=== PATIENT | female | born 1960 | race Caucasian/White ===

== ENCOUNTER → 2016-12-05 | Outpatient (REF) | payer OTHER ==
[2016-12-05 16:48] LABS: ALBUMIN 4.1 GM/DL (3.2-5.2); ALBUMIN/GLOBULIN RATIO 1.41 (1.00-1.93); ALKALINE PHOSPHATASE 114 U/L (45-117); ALT/SGPT 151 U/L (12-78); ANION GAP 8 MEQ/L (8-16); AST/SGOT 82 U/L (15-37); BILIRUBIN,TOTAL 0.3 MG/DL (0.2-1.0); BLOOD UREA NITROGEN 18 MG/DL (7-18); CARBON DIOXIDE LEVEL 29 MEQ/L (21-32); CHLORIDE LEVEL 107 MEQ/L (98-107); CREATININE FOR GFR 0.85 MG/DL (0.55-1.02); GLOMERULAR FILTRATION RATE > 60.0 (>51); GLUCOSE, FASTING 96 MG/DL (70-105); POTASSIUM SERUM 3.9 MEQ/L (3.5-5.1); SODIUM LEVEL 144 MEQ/L (136-145)
== END ==
LOC: M LABDRAW1 15:26
PROVIDERS: ATTEND Ophthalmology
DX: E11.3599 Type 2 diabetes mellitus with proliferative diabetic retinopathy without macular edema, unspecified eye (principal); H35.349 Macular cyst, hole, or pseudohole, unspecified eye

== ENCOUNTER → 2016-12-15 | Outpatient (CLI) | payer BC ==
[2016-12-15 10:46] LABS: ALBUMIN 4.2 GM/DL (3.2-5.2); ALBUMIN/GLOBULIN RATIO 1.27 (1.00-1.93); ALKALINE PHOSPHATASE 109 U/L (45-117); ALT/SGPT 67 U/L (12-78); ANION GAP 7 MEQ/L (8-16); AST/SGOT 23 U/L (15-37); BILIRUBIN,TOTAL 0.3 MG/DL (0.2-1.0); BLOOD UREA NITROGEN 23 MG/DL (7-18); CALCIUM LEVEL 9.4 MG/DL (8.5-10.1); CARBON DIOXIDE LEVEL 32 MEQ/L (21-32); CHLORIDE LEVEL 102 MEQ/L (98-107); CHOLESTEROL LEVEL 202 MG/DL (<200); GLOMERULAR FILTRATION RATE > 60.0 (>51); GLUCOSE, FASTING 106 MG/DL (70-105); POTASSIUM SERUM 3.9 MEQ/L (3.5-5.1); SODIUM LEVEL 141 MEQ/L (136-145); TOTAL PROTEIN 7.5 GM/DL (6.4-8.2); TRIGLYCERIDES LEVEL 157 MG/DL (<150)
== END ==
LOC: M LAB 08:46
PROVIDERS: ATTEND Nurse Practitioner Family
DX: E11.9 Type 2 diabetes mellitus without complications (principal); E78.2 Mixed hyperlipidemia

== ENCOUNTER → 2017-07-17 | Outpatient (REF) | payer BC ==
[2017-07-17 15:16] LABS: ALBUMIN/GLOBULIN RATIO 1.29 (1.00-1.93); ALKALINE PHOSPHATASE 101 U/L (45-117); ALT/SGPT 74 U/L (12-78); ANION GAP 10 MEQ/L (8-16); AST/SGOT 29 U/L (15-37); BILIRUBIN,TOTAL 0.3 MG/DL (0.2-1.0); BLOOD UREA NITROGEN 22 MG/DL (7-18); CARBON DIOXIDE LEVEL 26 MEQ/L (21-32); CHLORIDE LEVEL 108 MEQ/L (98-107); CHOLESTEROL LEVEL 183 MG/DL (<200); CREATININE FOR GFR 0.89 MG/DL (0.55-1.02); GLOMERULAR FILTRATION RATE > 60.0 (>51); GLUCOSE, FASTING 118 MG/DL (70-105); SODIUM LEVEL 144 MEQ/L (136-145); TOTAL PROTEIN 7.1 GM/DL (6.4-8.2); TRIGLYCERIDES LEVEL 118 MG/DL (<150)
== END ==
LOC: M LABDRAW1 13:18
PROVIDERS: ATTEND Nurse Practitioner Family
DX: E11.9 Type 2 diabetes mellitus without complications (principal); E78.2 Mixed hyperlipidemia

== ENCOUNTER → 2017-11-08 | Outpatient (REF) | payer BC ==
[2017-11-08 16:17] LABS: FREE T4 1.07 NG/DL (0.76-1.46)
== END ==
LOC: M LABDRAW1 15:32
PROVIDERS: ATTEND Nurse Practitioner Family
DX: E78.2 Mixed hyperlipidemia (principal)

== ENCOUNTER → 2019-11-26 | Outpatient (CLI) | payer OTHER ==
[2019-11-26 11:52] LABS: ALBUMIN 4.2 GM/DL (3.2-5.2); ALT/SGPT 184 U/L (12-78); BILIRUBIN,TOTAL 0.5 MG/DL (0.2-1.0); BLOOD UREA NITROGEN 14 MG/DL (7-18); CALCIUM LEVEL 9.6 MG/DL (8.5-10.1); CARBON DIOXIDE LEVEL 25 MEQ/L (21-32); CHLORIDE LEVEL 101 MEQ/L (98-107); CHOLESTEROL LEVEL 200 MG/DL (<200); CHOLESTEROL RISK RATIO 3.278 (<5); CREATININE FOR GFR 0.97 MG/DL (0.55-1.30); FREE T4 1.18 NG/DL (0.76-1.46); GLOMERULAR FILTRATION RATE > 60.0 (>51); GLUCOSE, FASTING 142 MG/DL (70-100); HDL CHOLESTEROL 61 MG/DL (>40); LDL CHOLESTEROL 110 MG/DL (<100); MAGNESIUM LEVEL 2.4 MG/DL (1.8-2.4); NON-HDL-C 139 MG/DL; POTASSIUM SERUM 3.8 MEQ/L (3.5-5.1); SODIUM LEVEL 139 MEQ/L (136-145); TOTAL PROTEIN 8.5 GM/DL (6.4-8.2); TRIGLYCERIDES LEVEL 147 MG/DL (<150)
[2019-11-26 13:33] LABS: CREATININE, URINE 67.4 MG/DL; MALB URINE SIEMENS 51.1 MG/L; MAU/CREAT RATIO 75.8 MCG/MG (0.0-30.0)
[2019-11-26 14:36] LABS: HEMOGLOBIN A1c 7.1 %
== END ==
LOC: M PLALAB 07:58
PROVIDERS: ATTEND Nurse Practitioner Family
DX: E78.2 Mixed hyperlipidemia (principal); E11.9 Type 2 diabetes mellitus without complications; E55.9 Vitamin D deficiency, unspecified; K21.9 Gastro-esophageal reflux disease without esophagitis

== ENCOUNTER → 2019-11-27 | Outpatient (REF) | payer OTHER ==
[2019-11-27 17:39] LABS: MONO SCRN NEGATIVE (NEGATIVE)
[2019-11-29 18:36] LABS: HEPATITIS A ANTIBODY IGM NEGATIVE (NEGATIVE); HEPATITIS B CORE ANTIBODY IGM NEGATIVE (NEGATIVE); HEPATITIS B SURFACE ANTIGEN NEGATIVE (NEGATIVE); HEPATITIS C VIRUS ABY INDEX < 0.0 INDEX (<0.8)
== END ==
LOC: M SFHCPLAZ 15:09
PROVIDERS: ATTEND Nurse Practitioner Family
DX: R94.5 Abnormal results of liver function studies (principal)

== ENCOUNTER → 2020-09-04 | Outpatient (REF) | payer OTHER ==
[2020-09-04 18:33] LABS: ALBUMIN 4.4 GM/DL (3.2-5.2); BILIRUBIN,TOTAL 0.3 MG/DL (0.2-1.0); CALCIUM LEVEL 10.1 MG/DL (8.8-10.2); CREATININE FOR GFR 1.03 MG/DL (0.55-1.30); GLOMERULAR FILTRATION RATE 58.2 (>45); TOTAL PROTEIN 8.1 GM/DL (6.4-8.2)
[2020-09-04 18:49] LABS: HEMOGLOBIN A1c 6.7 %
[2020-09-04 18:58] LABS: MAU/CREAT RATIO 10.8 MCG/MG (0.0-30.0)
== END ==
LOC: M SFHCPLAZ 14:24
PROVIDERS: ATTEND Family Medicine
DX: E11.9 Type 2 diabetes mellitus without complications (principal); I10 Essential (primary) hypertension; R80.9 Proteinuria, unspecified

== ENCOUNTER → 2020-11-11 | Outpatient (CLI) | payer OTHER ==
--- NOTE | 2020-11-11 11:06 | REP ---
INDICATION: [facility] SCREEN MAMMO FOR MALIGNANT NEOPLASM OF BREAST. Family history of sister with breast cancer. COMPARISON: 06/14/2016 as well as other prior exams. TECHNIQUE: MLO and CC views bilateral breasts performed with tomosynthesis. FINDINGS: Moderate fibroglandular tissue is present bilaterally. There is a new spiculated mass in the outer right breast slightly inferiorly within approximate diameter maximally of 2.5 cm. Just posterior to this there appear to be tiny calcifications. No other new mass or clustered microcalcifications are seen bilaterally. There are bilateral vascular calcifications. The Volpara volumetric breast density pattern is B. IMPRESSION: BIRADS/ACR category 0 incomplete. New spiculated nodule outer lower right breast with adjacent tiny calcifications slightly more posteriorly. Recommend spot compression magnification views and ultrasound to further evaluate. This patient's Tyrer-Cuzick lifetime breast cancer risk assessment score is 14.2%. This mammogram was interpreted with the aid of an FDA-approved computer-aided detection system. The patient states she had a clinical breast exam in over 1 year ago. The patient letter being requested is M0. RECOMMENDATION: Spot compression magnification views and ultrasound outer right breast. <Electronically signed by Dax Burns > 11/11/20 [id number]
== END ==
LOC: M WHC 09:48
PROVIDERS: ATTEND Family Medicine
DX: R92.2 Inconclusive mammogram (principal)

== ENCOUNTER → 2020-11-26 | Outpatient (CLI) | payer OTHER ==
--- NOTE | 2020-11-26 11:23 | REP ---
INDICATION: R92.8 ABN RIGHT MAMMO/RIGHT BREAST NODULE. COMPARISON: 11/11/2020. TECHNIQUE: Spot compression magnification views of the right breast are performed in the upper-outer quadrant as well as focused right breast ultrasound at that location. FINDINGS: A spiculated nodule is confirmed mammographically in the lateral aspect of the right breast with associated multiple tiny microcalcifications within the nodule and at the posterior margin of the nodule. Sonographically a hypoechoic spiculated nodule is identified at the 9 o'clock position of the right breast, corresponding to the mammographic abnormality. There is internal blood flow with Doppler evaluation. Maximum diameter sonographically is 1.8 cm. IMPRESSION: BIRADS/ACR category 5, highly suspicious findings compatible with breast cancer. Spiculated nodule identified both mammographically and sonographically in the lateral right breast. There is so seated microcalcifications within the nodule and at the posterior margin of the nodule. Recommend ultrasound-guided biopsy. This mammogram was interpreted with the aid of an FDA-approved computer-aided detection system. The patient letter being requested is M4. RECOMMENDATION: Recommend ultrasound-guided biopsy of the spiculated nodule in the lateral right breast. <Electronically signed by Dax Burns > 11/26/20 1112
== END ==
LOC: M WHC 10:19
PROVIDERS: ATTEND Family Medicine
DX: N63.11 Unspecified lump in the right breast, upper outer quadrant (principal); R92.8 Other abnormal and inconclusive findings on diagnostic imaging of breast

== ENCOUNTER → 2020-12-02 | Outpatient (CLI) | payer OTHER ==
[2020-12-02 14:03] VITALS: BP 142/90
--- NOTE | 2020-12-02 14:29 | REP ---
INDICATION: N63.20 LT BREAST 9:00 PALPABLE MASS AT 3-5 CFN. COMPARISON: Mammogram 11/26/2020. TECHNIQUE: Real-time sonographic evaluation of left breast performed. FINDINGS: Reportedly there is a palpable abnormality in the left breast at about 9 o'clock 3-5 cm from the nipple. There is no cystic or solid nodule seen at that location sonographically. IMPRESSION: BIRADS/ACR category 1, negative ultrasound left breast at the site of the palpable lump 9 o'clock. RECOMMENDATION: Clinical follow-up. <Electronically signed by Dax Burns > 12/02/20 1427
--- NOTE | 2020-12-02 14:37 | REP ---
INDICATION: R92.8 ABN MAMMO RT BREAST,US GUIDED BIOPSY. COMPARISON: 11/26/2020 TECHNIQUE: Real-time sonographic evaluation of right breast performed. FINDINGS: Ultrasound guidance was provided for Dr. Strange performed ultrasound-guided biopsy of the mass in the right breast at 9 o'clock. The biopsy needle is seen within the mass. The biopsy clip appears to be within the mass. IMPRESSION: Ultrasound guidance provided for Dr. Strange for ultrasound-guided biopsy of right breast mass 9 o'clock. RECOMMENDATION: Clinical follow-up. <Electronically signed by Dax Burns > 12/02/20 [id number]
--- NOTE | 2020-12-02 14:58 | REP ---
INDICATION: R92.8 ABN MAMMO RT BREAST, POST US GUIDED BIOPSY. COMPARISON: 11/26/2020. TECHNIQUE: ML and CC views right breast performed following ultrasound-guided biopsy of a right breast mass laterally. FINDINGS: A biopsy clip is seen within the spiculated mass in the lateral right breast. IMPRESSION: Successful ultrasound-guided biopsy and clip placement for a mass in the lateral right breast. RECOMMENDATION: Clinical follow-up. <Electronically signed by Dax Burns > 12/02/20 4616
--- NOTE | 2020-12-05 22:55 | ROOPDOC ---
[facility] Report Of Operation Report of Operation DATE OF PROCEDURE: 12/02/20 DIAGNOSIS: right breast suspicious lesion PROCEDURE: Ultrasound guided biopsy of right breast suspicious lesion with clip placement SURGEON: Giuliano Jones BLOOD LOSS: minimal COMPLICATIONS: none Lidocaine 1% LOT [id number] Expiration 07/12 Sodium Bicarbonate 8.4% LOT [id number] Expiration 05/10 Hydromark clip LOT [id number] Expiration 08/12 SHAPE 4 Bx device: BARD [id number] x10 cm LOT [id number] Expiration 07/12 Informed consent was obtained. The most common risk and possible complications including bleeding, hematoma, bruising, infection, injury to surrounding structures were explained to the patient and the patient expressed understa nding. Patient was placed on the bed in the supine position. Appropriate time out was done stating patients name, date of , and the procedure to be performed. The right breast was prepped and draped in the usual fashion. The ultrasound was used to confirm the location of the lesion in the right breast at 9:00 3 centimeters from the nipple. Plain Lidocaine 1% and 8.4% sodium bicarbonate 10:1 mix was used to anesthetize the skin, the biopsy site and tissues along the anticipated biopsy tract. Small skin incision was made with blade number 11. BARD Marquee 14G cannula with introducer ([id number]) was inserted through the incision and advanced under the ultrasound guidance to position immediately adjacent to the lesion. Next, the introducer was removed and BARD Marquee 14G biopsy device was places in the cannula. Pre-biopsy imaging, and post-biopsy imaging were captured. Five good core biopsies were taken at various levels of the lesion. Specimen was placed in formaldehyde, labeled with appropriate biopsy site and patients name, and sent to pathology for evaluation. Next, the biopsy device was withdrawn and a clip introducer was inserted into the biopsy site via the cannula. The SHAPE 4 Hydromark clip was deployed under sonographic guidance. Post-clip placement image was captured. Manual pressure over the biopsy cavity and tract was held after the clip introducer was withdrawn. No bleeding was noted upon removal of the pressure. Post-biopsy mammogram of the right breast was obtained and showed clip in expected position. Postprocedural dressing was placed. Patient tolerated procedure well. Discharge instructions were discussed with the patient and the patient expressed understanding. GIULIANO JONES DO Dec 05, 2020 22:55
== END ==
LOC: M WHCPRO 11:38
PROVIDERS: ATTEND Surgery
DX: C50.911 Malignant neoplasm of unspecified site of right female breast (principal)

== ENCOUNTER → 2020-12-02 | Outpatient (CLI) | payer OTHER ==
[~2020-12-02] MED LIST: AMOX500C PO; ASPI-161 PO; ATOR1TAB19 PO; D31000TA2 PO; HYDR-3490 PO; METF500T13 PO; OMEGCAP4 PO; OMEP-218 PO; VITA50005 PO
== END ==
LOC: M PLALAB 14:09
PROVIDERS: ATTEND Surgery
DX: Z13.79 Encounter for other screening for genetic and chromosomal anomalies (principal)

== ENCOUNTER → 2020-12-10 | Outpatient (REF) | payer OTHER ==
[2020-12-10 14:13] LABS: BLOOD UREA NITROGEN 18 MG/DL (7-18); CARBON DIOXIDE LEVEL 33 MEQ/L (21-32); CHLORIDE LEVEL 102 MEQ/L (98-107); CREATININE FOR GFR 0.95 MG/DL (0.55-1.30); GLOMERULAR FILTRATION RATE > 60.0 (>45); GLUCOSE, FASTING 150 MG/DL (70-100); POTASSIUM SERUM 3.9 MEQ/L (3.5-5.1); SODIUM LEVEL 140 MEQ/L (136-145)
== END ==
LOC: M PLALAB 11:41
PROVIDERS: ATTEND Surgery
DX: C50.911 Malignant neoplasm of unspecified site of right female breast (principal)

== ENCOUNTER → 2020-12-25 | Outpatient (CLI) | payer OTHER ==
[~2020-12-25] MED LIST changes: +PROHANCE 279.3MG/ML 15ML VIAL As Ordered ONE; +PROHANCE 279.3MG/ML 5ML VIAL As Ordered ONE
--- NOTE | 2020-12-25 17:13 | REP ---
INDICATION: MAL BRITTA OF RT BREAST. COMPARISON: Comparison bilateral mammography November 11, 2020. Diagnostic right breast mammography November 26, 2020 and ultrasound from the same date confirmed mass a suspicious mass in the right lateral breast. Ultrasound-guided needle biopsy performed 02 December 2020. TECHNIQUE: Three Mayra MRI imaging was performed with a dedicated breast coil. Axial, coronal, and sagittal T1 and T2 weighted scans were obtained with and without fat saturation in the usual fashion. The study includes dynamically acquired post gadolinium-enhanced imaging with image subtraction. Maximum intensity projection and multi planar reformation imaging is included as well. This study is interpreted with the aid of [employer], an FDA approved computer aided detection (CAD) software program, on a dedicated breast MRI workstation. The gadolinium enhancement dose is 16 mL of intravenous ProHance. FINDINGS: The spiculated mass identified mammographically and sonographically and recently biopsied is seen in the right breast inferolateral quadrant at approximately the 8 o'clock position middle 3rd. There is an adjacent HydroMARK needle biopsy marker clip. This lesion is spiculated, measures 1.5 cm in diameter on MR images, and shows heterogeneous areas of enhancement with mixed plateau and washout kinetics. There is a moderate fibroglandular pattern and multifocal non mass-like diffuse and symmetric pattern of background parenchymal enhancement is seen in both breasts. No significant cystic changes seen. There are multiple normal appearing fat replaced axillary lymph nodes bilaterally. There is no MR evidence to suggest adenopathy. No internal mammary adenopathy is seen. No other suspicious morphologic abnormality is seen in either breast. No other suspicious area of enhancement and washout kinetics is seen. Subtraction views show no additional abnormality. IMPRESSION: BI-RADS category 6 known right breast malignancy. No other suspicious target is identified on breast MRI study. <Electronically signed by Massimo Villalba > 12/25/20 5044
== END ==
LOC: M RAD 14:26
PROVIDERS: ATTEND Surgery
DX: C50.911 Malignant neoplasm of unspecified site of right female breast (principal)
CPT/HCPCS: A9576; C8908

== ENCOUNTER → 2020-12-31 | Outpatient (CLI) | payer OTHER ==
[~2020-12-31] MED LIST changes: -PROHANCE 279.3MG/ML 15ML VIAL As Ordered ONE; -PROHANCE 279.3MG/ML 5ML VIAL As Ordered ONE
== END ==
LOC: M LABSMTC 11:17
PROVIDERS: ATTEND Anesthesiology
DX: Z01.812 Encounter for preprocedural laboratory examination (principal); Z20.822 Contact with and (suspected) exposure to COVID-19

== ENCOUNTER → 2021-01-01 | Outpatient (REF) | payer OTHER ==
[~2021-01-01] MED LIST changes: +ROXI1TAB2 PO
[2021-01-01 18:05] LABS: HEMOGLOBIN A1c 7.1 %
[2021-01-01 18:15] LABS: ALBUMIN 4.5 GM/DL (3.2-5.2); ALT/SGPT 81 U/L (12-78); BASO # 0.1 10^3/uL (0.0-0.2); BASO % 0.8 % (0.0-1.0); BILIRUBIN,TOTAL 0.3 MG/DL (0.2-1.0); BLOOD UREA NITROGEN 18 MG/DL (7-18); CALCIUM LEVEL 10.3 MG/DL (8.8-10.2); CARBON DIOXIDE LEVEL 33 MEQ/L (21-32); CHLORIDE LEVEL 100 MEQ/L (98-107); EOS # 0.3 10^3/uL (0.0-0.5); EOS % 3.8 % (0.0-3.0); GLOMERULAR FILTRATION RATE > 60.0 (>45); GLUCOSE, FASTING 109 MG/DL (70-100); HEMATOCRIT 43.8 % (36.0-47.0); LYMPH # 2.1 10^3/uL (1.5-5.0); LYMPH % 23.7 % (24.0-44.0); MEAN CORPUSCULAR HEMOGLOBIN 28.4 pg (27.0-33.0); MEAN CORPUSCULAR VOLUME 88.8 fl (80.0-96.0); MONO # 0.7 10^3/uL (0.0-0.8); NEUTROPHILS # 5.7 10^3/uL (1.5-8.5); NEUTROPHILS % 63.4 % (36.0-66.0); NT-PRO BNP 57 PG/ML (<125); PLATELET COUNT, AUTOMATED 295 10^3/uL (150-450); POTASSIUM SERUM 4.3 MEQ/L (3.5-5.1); RED BLOOD COUNT 4.93 10^6/uL (4.00-5.40); SODIUM LEVEL 141 MEQ/L (136-145); TOTAL PROTEIN 8.1 GM/DL (6.4-8.2)
== END ==
LOC: M SFHCPLAZ 15:39
PROVIDERS: ATTEND Family Medicine
DX: Z01.818 Encounter for other preprocedural examination (principal)

== ENCOUNTER 2021-01-05 06:42 | Day surgery (SDC) | payer OTHER ==
[~2021-01-05] VITALS: Ht 162.6 cm; Wt 81.6 kg
[~2021-01-05 06:42] MED LIST changes: +HEPARIN SOD (PORCINE) 5000UNITS/ML 1ML VIAL/SYRINGE SQ ONE; +LR 1,000 ML IV ONE; -ROXI1TAB2 PO; +ceFAZolin SOD 2 GM in IV 1 EA IV ONE
[2021-01-05] MEDS ORDERED: BUPIVACAINE HCL 0.25% 30ML VIAL As Ordered ONE (07:12)
[2021-01-05] MEDS ORDERED: METHYLENE BLUE 0.5% (5MG/ML) 10 ML AMP (PROVAYBLUE) As Ordered ONE (07:12)
[2021-01-05] MEDS ORDERED: LIDOCAINE 1% SDV 30ML VIAL As Ordered ONE (07:12)
--- OUTSIDE RECORDS SUMMARY | 2021-01-05 07:37 | CCD ---
Author Author [facility] Organization [employer] [facility] [facility] Address Unknown Phone Unavailable Care Team Providers Care Parer Name Role Phone Suzy Strange Unavailable PROBLEMS Type Condition ICD9-CM Code HFQ82-NP Code Onset Dates Condition S tatus W/U Status Risk SNOMED Code Notes Problem Family history of breast cancer in sister Z80.3 Active confirmed 573255425 Problem Postmenopausal status Z78.0 Active confirmed 35554903 Problem DM w/o complication type II E11.9 Active confirmed 976070616 Problem Essential hypertension I10 Active confirmed 42292326 Problem Vitamin D deficiency E55.9 Active confirmed 44665984 Problem Type 2 diabetes mellitus wit hout complication, unspecified whether mcfp insulin use E11.9 Active confirmed 019572075 Problem Mixed hyperlipidemia E78.2 Active confirmed 503615226 Problem Malignant neoplasm of right female breast, unspecified estrogen receptor status, unspecified site of breast C50.911 Active confirmed 177751652 Problem Esophageal reflux K21.9 Active confirmed 23 7775579 Problem Macular cyst, hole, or pseudohole, left eye H35.34 2 Active confirmed 333246743 Problem Elevated LFTs R94.5 Active confirmed 857972 001 Problem Age-related nuclear cataract, left eye H25.12 A ctive confirmed 797111218924748 Problem Abnormal mammogram of right breast R92.8 Activ e confirmed 737490518 ALLERGIES Allergen (clinical drug ingredient) Drug/Non Drug Allergy do cumented on EMR Reaction Allergy Type Onset Date Status lisinopril Lisinopril(NDC Code:[address]-40) Rash Drug Allergy Active valsartan Valsartan(NDC Code:[address]-94) rash Drug Allergy Active cold medication Rash Non Drug Allergy Act soy ENCOUNTERS from 1959 to 2020-12-30 Encounter Location Date Provider Diagnosis [facility] [place] [address] 2020 Suzy Grahamsergiojoe IMMUNIZATIONS Vaccine Route Administration Date Status Influenza (Pharmacy Given) Unknown Sep 19, 2019 Admin istered Influenza (18 yrs & older) Flublok IM Intramuscular Sep 04, 2020 Administered TDAP IM Intramuscular April 28, 2016 Administered Influenza (6mo & up) Fluzone Unknown Sep 20, 2017 Adm inistered Influenza (6mo & up) Fluzone Unknown Aug 26, 2016 Adm inistered Influenza (6mo & up) Fluzone Unknown Sep 06, 2012 Adm inistered Influenza (6mo & up) Fluzone Unknown Sep 02, 2011 Adm inistered SOCIAL HISTORY Tobacco Use: Social History Observation Description Date Details (start date - stop date) Never Smoker Sex Assigned At : Social History Observation Description Sex Assigned At Unknown Education: Question Answer Notes Level of Education: High School Audit Question Answer Notes Total Score: 0 Interpretation: Alcohol Education Language: Question Answer Notes Languages spoken: Cape Verdean Lutheran: Question Answer Notes Lutheran 05 Alevism Sexual Hx: Question Answer Notes Had sex in the last 12 months (vaginal, oral, or anal)? No Drug and Alcohol Question Answer Notes Total Score: 0 Interpretation: No problems reported Tobacco Use: Question Answer Notes Are you a: never smoker REASON FOR REFERRAL No Information VITAL SIGNS No information MEDICATIONS Medication SIG (Take, Route, Frequency, Duration) Notes Start Da te End Date Status Lancets DX: E11.9 as directed - dailyand prn for 99 months Not-Taking Omeprazole 20 mg 1 capsule Orally Once a day for 90 day(s) Active Aspir-81 81 MG 1 tablet Orally Once a day Active Atorvastatin Calcium 10 MG 1 tablet Orally Once a day for 90 days Active Drisdol 1.25 MG (22132 UT) 1 capsule Orally once a wee k, take with meal for 30 day(s) Active Glucometer - as directed - daily for 99 months Not-Taking Metformin HCl 500 MG 2 tabs with meal Orally daily for 30 day(s) Active Lidocaine-Prilocaine 2.5-2.5 % apply entire tube to ri ght nipple 2 hours prior coming to hospital for surgery. Cover with plastic Externally once for 1 day Dec, Active [place] 3 1000 MG 2 capsule Orally Once a day Active Blood Glucose Test DX: E11.9 as directed In Vitro fasting daily for 99 months Not-Taking Vitamin D 2000 UNIT 2 tabs with food Orally Once a day Not-Taking Hydrochlorothiazide 25 MG 1 tablet Orally Once a day for 90 day(s) Active PROCEDURES No Information RESULTS No Results REASON FOR VISIT surgery question MEDICAL (GENERAL) HISTORY Type Description Date Medical History palpitations Medical History thalassemia minor- Hx of anemia since ch ildhood Medical History anxiety Medical History Esophageal reflux Medical History low back pain Medical History essential Hypertension Medical History elevated liver enzymes - sono normal Medical History Dysmetabolic Syndrome X Medical History DM w/o complication type II - 08/2015 Medical History Vitamin D deficiency Surgical History tubal ligation 1980 Surgical History T & A 1966 Surgical History colonoscopy - diverticulosis, f/up 5-10y rs, Re[facility]l 05/01 Surgical History EGD -normal, Reindl 05/01 Surgical History L eye macula hole repair 12-26-16 Surgical History Rt breast biopsy 12/02/20 Hospitalization History No Hospitalization history informati on Goals Section No Information Health Concerns No Information MEDICAL EQUIPMENT No Information MENTAL STATUS No Information FUNCTIONAL STATUS No Information ASSESSMENTS No Information PLAN OF TREATMENT Medication Medication Name Sig Start Date Stop Date Lidocaine-Prilocaine 2.5-2.5 % apply entire tube to ri ght nipple 2 hours prior coming to hospital for surgery. Cover with plastic Externally once for 1 day Dec, Next Appt Details Provider Name:Gerry Pond, 2021-01-01 0 2:00:00 PM, [address] [place] [address], [phone], Provider Name:Suzy Strange, 10-01-16 10:00:00 AM, [address] [place] [address], [phone], Provider Name:Suzy Strange, 10-01-22 02:00:00 PM, [address] [place] [address], [address], Provider Name:Suzy Strange, 20 21-03-15 10:00:00 AM, [address] [place], [address], Provider Name:Melany Hinojosa, 2021-03-17 02:3 0:00 PM, [address] [place] [address], [phone], Insurance Providers Payer Name Payer Address Payer Phone Insured Name Patient Relati onship to Insured Coverage Start Date Coverage End Date [facility] COMM[employer]AN [facility] [address] [facility] [phone] JONO RINCON
--- OUTSIDE RECORDS SUMMARY | 2021-01-05 07:38 | CCD ---
Author Author [facility] Organization [facility] [facility] Address Unknown Phone Unavailable Care Team Providers Care Manager Care Management Name Role Phone Suzy Strange Unavailable PROBLEMS Type Condition ICD9-CM Code [id number] Code Onset Dates Condition S tatus W/U Status Risk SNOMED Code Notes Problem Family history of breast cancer in sister Z80.3 Active confirmed 788500170 Problem Postmenopausal status Z78.0 Active confirmed 28639348 Problem DM w/o complication type II E11.9 Active confirmed 527394408 Problem Essential hypertension I10 Active confirmed 50388057 Problem Vitamin D deficiency E55.9 Active confirmed 36652815 Problem Type 2 diabetes mellitus wit hout complication, unspecified whether mcfp insulin use E11.9 Active confirmed 297124729 Problem Mixed hyperlipidemia E78.2 Active confirmed 417739522 Problem Malignant neoplasm of right female breast, unspecified estrogen receptor status, unspecified site of breast C50.911 Active confirmed 162887781 Problem Esophageal reflux K21.9 Active confirmed 23 4827287 Problem Macular cyst, hole, or pseudohole, left eye H35.34 2 Active confirmed 651613932 Problem Elevated LFTs R94.5 Active confirmed 557775 001 Problem Age-related nuclear cataract, left eye H25.12 A ctive confirmed 031448981906134 Problem Abnormal mammogram of right breast R92.8 Activ e confirmed 426489806 ALLERGIES Allergen (clinical drug ingredient) Drug/Non Drug Allergy do cumented on EMR Reaction Allergy Type Onset Date Status lisinopril Lisinopril(NDC Code:[address]-03) Rash Drug Allergy Active valsartan Valsartan(NDC Code:[address]-11) rash Drug Allergy Active cold medication Rash Non Drug Allergy Act soy ENCOUNTERS from 1959 to 2020-12-29 Encounter Location Date Provider Diagnosis [facility] Breast Care [facility] [place] [address] Nov, Suzy Strange IMMUNIZATIONS Vaccine Route Administration Date Status Influenza [...] Education Language: Question Answer Notes Languages spoken: St Helenian Druze: Question Answer Notes Druze 05 Jew Sexual Hx: Question Answer Notes Had sex [...] for 90 days Active Drisdol 1.25 MG (40836 UT) 1 capsule Orally once a wee [...] Externally once for 1 day Dec, Active [place] 3 1000 MG 2 capsule Orally Once a day Active Blood Glucose Test DX: E11.9 as directed In Vitro fasting daily for 99 months Not-Taking Vitamin D 2000 UNIT 2 tabs with food Orally Once a day Not-Taking Hydrochlorothiazide 25 MG 1 tablet Orally Once a day for 90 day(s) Active PROCEDURES No Information RESULTS No Results REASON FOR VISIT ER/OH/ HER 2 results MEDICAL (GENERAL) HISTORY Type Description Date Medical [...] Provider Name:Gerry Pond, 2021-01-01 0 2:00:00 PM, [address] [place] [address], [phone], Provider Name:Suzy Strange, 10-01-16 10:00:00 AM, [address] [place] [address], [phone], Provider Name:Suzy Strange, 10-01-22 02:00:00 PM, [address] [place] [address], [address], Provider Name:Suzy Strange, 07-02-15 10:00:00 AM, [address] [place] [address], [phone], Provider Name:Melany Hinojosa, 2021-03-17 02:3 0:00 PM, [address] [place] [address], [phone], Insurance Providers Payer Name Payer Address Payer Phone Insured Name Patient Relati onship to Insured Coverage Start Date Coverage End Date [facility] COMM[facility] PLAN [facility] [address] [facility] [phone] JONO RINCON
--- OUTSIDE RECORDS SUMMARY | 2021-01-05 07:39 | CCD ---
Author Author [facility] Organization [employer] [employer] [facility] Address Unknown Phone Unavailable Care Team Providers Care Dental Technologist Name Role Phone Suzy Strange Unavailable PROBLEMS Type Condition ICD9-CM Code QZC76-FK Code Onset Dates Condition S tatus W/U Status Risk SNOMED Code Notes Problem Family history of breast cancer in sister Z80.3 Active confirmed 553512496 Problem Postmenopausal status Z78.0 Active confirmed 14420913 Problem DM w/o complication type II E11.9 Active confirmed 300457518 Problem Essential hypertension I10 Active confirmed 91863940 Problem Vitamin D deficiency E55.9 Active confirmed 37636887 Problem Type 2 diabetes mellitus wit hout complication, unspecified whether fdc insulin use E11.9 Active confirmed 209663289 Problem Mixed hyperlipidemia E78.2 Active confirmed 693052016 Problem Malignant neoplasm of right female breast, unspecified estrogen receptor status, unspecified site of breast C50.911 Active confirmed 943324790 Problem Esophageal reflux K21.9 Active confirmed 23 2681761 Problem Macular cyst, hole, or pseudohole, left eye H35.34 2 Active confirmed 699765048 Problem Elevated LFTs R94.5 Active confirmed 058452 001 Problem Age-related nuclear cataract, left eye H25.12 A ctive confirmed 307515083336849 Problem Abnormal mammogram of right breast R92.8 Activ e confirmed 070086484 ALLERGIES Allergen (clinical drug ingredient) Drug/Non Drug Allergy do cumented on EMR Reaction Allergy Type Onset Date Status lisinopril Lisinopril(NDC Code:[address]-88) Rash Drug Allergy Active valsartan Valsartan(NDC Code:[address]-41) rash Drug Allergy Active cold medication Rash Non Drug Allergy Act soy ENCOUNTERS from 1959 to 2020-12-29 Encounter Location Date Provider Diagnosis [address] [phone] Dec, Suzy Strange Malignant neoplasm of right female breast, unspecified estrogen receptor status, unspecified site of breast C50.911 IMMUNIZATIONS Vaccine Route Administration Date Status Influenza [...] Education Language: Question Answer Notes Languages spoken: Guinean Advent: Question Answer Notes Advent 05 Amish Sexual Hx: Question Answer Notes Had sex [...] for 90 days Active Drisdol 1.25 MG (10822 UT) 1 capsule Orally once a wee [...] Externally once for 1 day Dec, Active [place] 3 1000 MG 2 capsule Orally Once a day Active Blood Glucose Test DX: E11.9 as directed In Vitro fasting daily for 99 months Not-Taking Vitamin D 2000 UNIT 2 tabs with food Orally Once a day Not-Taking Hydrochlorothiazide 25 MG 1 tablet Orally Once a day for 90 day(s) Active PROCEDURES No Information RESULTS No Results REASON FOR VISIT MRI results MEDICAL (GENERAL) HISTORY Type Description Date [...] No Information FUNCTIONAL STATUS No Information ASSESSMENTS Encounter Date Diagnosis Assessment Notes Treatment Notes Treatm ent Clinical Notes Dec, Malignant neoplasm of right female breast, unspecified estrogen receptor status, unspecified site of breast (ICD-10 - C50.911) PLAN OF TREATMENT Medication Medication Name Sig Start Date Stop Date Lidocaine-Prilocaine 2.5-2.5 % apply entire tube to ri ght nipple 2 hours prior coming to hospital for surgery. Cover with plastic Externally once for 1 day Dec, Next Appt Details Provider Name:Gerry Pond, 2021-01-01 0 2:00:00 PM, [facility] [place], [phone], Provider Name:Suzy Strange, 20 10-01-16 10:00:00 AM, [facility] [place], [phone], Provider Name:Szuy Strange, 10-01-22 02:00:00 PM, [address] [place] [address], [address], Provider Name:Suzy Strange, 07-02-15 10:00:00 AM, [address] [place] [address], [address], Provider Name:Melany Hinojosa, 2021-03-17 02:3 0:00 PM, [address] [place] [address], [phone], Insurance Providers Payer Name Payer Address Payer Phone Insured Name Patient Relati onship to Insured Coverage Start Date Coverage End Date [facility] [employer] [facility] [address] [facility] [phone] JONO RINCON self
--- OUTSIDE RECORDS SUMMARY | 2021-01-05 07:40 | CCD ---
Author Author [employer] Organization [employer] Address Unknown Phone Unavailable Care Team Providers Care Deli Cook Name Role Phone Suzy Strange Unavailable PROBLEMS Type Condition ICD9-CM Code [id number] Code Onset Dates Condition S tatus W/U Status Risk SNOMED Code Notes Problem Family history of breast cancer in sister Z80.3 Active confirmed 336939205 Problem Postmenopausal status Z78.0 Active confirmed 96527994 Problem DM w/o complication type II E11.9 Active confirmed 147728214 Problem Essential hypertension I10 Active confirmed 41902940 Problem Vitamin D deficiency E55.9 Active confirmed 72011322 Problem Type 2 diabetes mellitus wit hout complication, unspecified whether fdc insulin use E11.9 Active confirmed 690023948 Problem Mixed hyperlipidemia E78.2 Active confirmed 427454349 Problem Malignant neoplasm of right female breast, unspecified estrogen receptor status, unspecified site of breast C50.911 Active confirmed 458907188 Problem Esophageal reflux K21.9 Active confirmed 23 4186069 Problem Macular cyst, hole, or pseudohole, left eye H35.34 2 Active confirmed 644937550 Problem Elevated LFTs R94.5 Active confirmed 813086 001 Problem Age-related nuclear cataract, left eye H25.12 A ctive confirmed 288222424543877 Problem Abnormal mammogram of right breast R92.8 Activ e confirmed 268723772 ALLERGIES Allergen (clinical drug ingredient) Drug/Non Drug Allergy do cumented on EMR Reaction Allergy Type Onset Date Status lisinopril Lisinopril(NDC Code:[address]-04) Rash Drug Allergy Active valsartan Valsartan(NDC Code:[address]-37) rash Drug Allergy Active cold medication Rash Non Drug Allergy Act soy ENCOUNTERS from 1960 to 2020-12-28 Encounter Location Date Provider Diagnosis [facility] [address] [place] [id number] 2020 Suzy Alie IMMUNIZATIONS Vaccine Route Administration Date Status Influenza [...] Education Language: Question Answer Notes Languages spoken: Divehi Yazidi: Question Answer Notes Yazidi 05 Latter Day Sexual Hx: Question Answer Notes Had sex [...] for 90 days Active Drisdol 1.25 MG (20362 UT) 1 capsule Orally once a wee [...] Externally once for 1 day Dec, Active Elgin 3 1000 MG 2 capsule Orally Once a day Active Blood Glucose Test DX: E11.9 as directed In Vitro fasting daily for 99 months Not-Taking Vitamin D 2000 UNIT 2 tabs with food Orally Once a day Not-Taking Hydrochlorothiazide 25 MG 1 tablet Orally Once a day for 90 day(s) Active PROCEDURES No Information RESULTS No Results REASON FOR VISIT AUTHORIZATION MEDICAL (GENERAL) HISTORY Type Description Date Medical [...] Provider Name:Gerry Pond, 2021-01-01 0 2:00:00 PM, [address] [place] [address], [phone], Provider Name:Suzy Strange, 10-01-16 10:00:00 AM, [address] [place] [address], [phone], Provider Name:Suzy Strange, 10-01-22 02:00:00 PM, [address] [place] [address], [id number], Provider Name:Suzy Strange, 07-02-15 10:00:00 AM, [address] [place] [address], [id number], Provider Name:Melany Hinojosa, 2021-03-17 02:3 0:00 PM, [address] [place] [address], [phone], Insurance Providers Payer Name Payer Address Payer Phone Insured Name Patient Relati onship to Insured Coverage Start Date Coverage End Date [facility] [address] [facility] [phone] JONO RINCON
--- OUTSIDE RECORDS SUMMARY | 2021-01-05 07:41 | CCD ---
Author Author [employer] [facility] Organization [employer] [facility] Address Unknown Phone Unavailable Care Team Providers Care Tyre Retreader Name Role Phone Suzy Strange Unavailable PROBLEMS Type Condition ICD9-CM Code LHQ68-[id number] Code Onset Dates Condition S tatus W/U Status Risk SNOMED Code Notes Problem Family history of breast cancer in sister Z80.3 Active confirmed 078937208 Problem Postmenopausal status Z78.0 Active confirmed 39209184 Problem DM w/o complication type II E11.9 Active confirmed 051915736 Problem Essential hypertension I10 Active confirmed 63244458 Problem Vitamin D deficiency E55.9 Active confirmed 88596625 Problem Type 2 diabetes mellitus wit hout complication, unspecified whether alf insulin use E11.9 Active confirmed 972849057 Problem Mixed hyperlipidemia E78.2 Active confirmed 229017442 Problem Malignant neoplasm of right female breast, unspecified estrogen receptor status, unspecified site of breast C50.911 Active confirmed 920778920 Problem Esophageal reflux K21.9 Active confirmed 23 5043216 Problem Macular cyst, hole, or pseudohole, left eye H35.34 2 Active confirmed 235665384 Problem Elevated LFTs R94.5 Active confirmed 353480 001 Problem Age-related nuclear cataract, left eye H25.12 A ctive confirmed 227745420153686 Problem Abnormal mammogram of right breast R92.8 Activ e confirmed 756946344 ALLERGIES Allergen (clinical drug ingredient) Drug/Non Drug Allergy do cumented on EMR Reaction Allergy Type Onset Date Status lisinopril Lisinopril(NDC Code:[address]-61) Rash Drug Allergy Active valsartan Valsartan(NDC Code:[address]-91) rash Drug Allergy Active cold medication Rash Non Drug Allergy Act soy ENCOUNTERS from 1960 to 2020-12-24 Encounter Location Date Provider Diagnosis [facility] [place] [address] 14 Nov, 2020 Suzy Grahamvidyajanene IMMUNIZATIONS Vaccine Route Administration Date Status Influenza (18 yrs & older) Flublok IM Intramuscular Sep 04, 2020 Administered Influenza (Pharmacy Given) Unknown Sep 19, 2019 Admin istered TDAP IM Intramuscular April 28, 2016 Administered [...] Education Language: Question Answer Notes Languages spoken: Paraguayan Orthodoxy: Question Answer Notes Orthodoxy 05 Sikhism Sexual Hx: Question Answer Notes Had sex [...] - dailyand prn for 99 months Not-Taking Atorvastatin Calcium 10 MG 1 tablet Orally Once a day for 90 days Active Oakwood 3 1000 MG 2 capsule Orally Once a day Active Aspir-81 81 MG 1 tablet Orally Once a day Active Hydrochlorothiazide 25 MG 1 tablet Orally Once a day for 90 day(s) Active Drisdol 1.25 MG (44878 UT) 1 capsule Orally once a wee k, take with meal for 30 day(s) Active Omeprazole 20 mg 1 capsule Orally Once a day for 90 day(s) Active Vitamin D 2000 UNIT 2 tabs with food Orally Once a day Not-Taking Blood Glucose Test DX: E11.9 as directed In Vitro fasting daily for 99 months Not-Taking Glucometer - as directed - daily for 99 months Not-Taking Metformin HCl 500 MG 2 tabs with meal Orally daily for 30 day(s) Active PROCEDURES No Information RESULTS No Results REASON FOR VISIT s/p BX MEDICAL (GENERAL) HISTORY Type Description Date Medical [...] Information ASSESSMENTS No Information PLAN OF TREATMENT Next Appt Details Provider Name:Melany Hinojosa, 2021-03-17 02:3 0:00 PM, [address] [place], [phone], Insurance Providers Payer Name Payer Address Payer Phone Insured Name Patient Relati onship to Insured Coverage Start Date Coverage End Date [facility] [address] [facility] [phone] JONO RINCON
--- OUTSIDE RECORDS SUMMARY | 2021-01-05 07:42 | CCD ---
Author Author [employer] [facility] [facility] Organization [employer] Address Unknown Phone Unavailable Care Team Providers Care Sole Inker Name Role Phone Suzy Strange Unavailable PROBLEMS Type Condition ICD9-CM Code RCV71-SL Code Onset Dates Condition S tatus W/U Status Risk SNOMED Code Notes Problem Family history of breast cancer in sister Z80.3 Active confirmed 583440631 Problem Postmenopausal status Z78.0 Active confirmed 61744300 Problem DM w/o complication type II E11.9 Active confirmed 388112146 Problem Essential hypertension I10 Active confirmed 48213350 Problem Vitamin D deficiency E55.9 Active confirmed 85722525 Problem Type 2 diabetes mellitus wit hout complication, unspecified whether fpc insulin use E11.9 Active confirmed 659160211 Problem Mixed hyperlipidemia E78.2 Active confirmed 062078096 Problem Malignant neoplasm of right female breast, unspecified estrogen receptor status, unspecified site of breast C50.911 Active confirmed 987282875 Problem Esophageal reflux K21.9 Active confirmed 23 1393588 Problem Macular cyst, hole, or pseudohole, left eye H35.34 2 Active confirmed 010276818 Problem Elevated LFTs R94.5 Active confirmed 286593 001 Problem Age-related nuclear cataract, left eye H25.12 A ctive confirmed 420957539391910 Problem Abnormal mammogram of right breast R92.8 Activ e confirmed 521316867 ALLERGIES Allergen (clinical drug ingredient) Drug/Non Drug Allergy do cumented on EMR Reaction Allergy Type Onset Date Status lisinopril Lisinopril(NDC Code:[address]-28) Rash Drug Allergy Active valsartan Valsartan(NDC Code:[address]-49) rash Drug Allergy Active cold medication Rash Non Drug Allergy Act soy ENCOUNTERS from 1960 to 2020-12-24 Encounter Location Date Provider Diagnosis [facility] [place] [address] 18 Nov, 2020 Suzy Strange Malignant neoplasm of right female breas t, unspecified estrogen receptor status, unspecified site of breast C50.911 ; Abnormal mammogram of right breast R92.8 ; Breast mass, left N63.20 ; Family history of breast cancer in first degree relative Z80.3 ; Family hx of ovarian malignancy Z80.41 ; Genetic testing Z13.79 ; Long-term use of aspirin therapy Z79.82 and Type 2 diabetes mellitus without complication, unspecified whether keno terminal operator insulin use E11.9 IMMUNIZATIONS Vaccine Route Administration Date Status Influenza [...] Education: High School Audit Question Answer Notes Interpretation: Alcohol Education Total Score: 0 Language: Question Answer Notes Languages spoken: Irish Sabianism: Question Answer Notes Sabianism 05 Holiness Sexual Hx: Question Answer Notes Had sex [...] Once a day for 90 days Active Hewitt 3 1000 MG 2 capsule Orally Once a day Active Aspir-81 81 MG 1 tablet Orally Once a day Active Hydrochlorothiazide 25 MG 1 tablet Orally Once a day for 90 day(s) Active Drisdol 1.25 MG (82015 UT) 1 capsule Orally once a wee [...] Information RESULTS No Results REASON FOR VISIT post BX , NEEDS 1 hour appt, give L US results MEDICAL (GENERAL) HISTORY Type Description Date [...] Notes Treatment Notes Treatm ent Clinical Notes Nov, Malignant neoplasm of right female breast, unspecified estrogen receptor status, unspecified site of breast (ICD-10 - C50.911) RIGHT 9:00 3CFN BREAST CANCER ILC GRADE 2 ER ? GA ? HER2 ? cT 1c ( 1.8 cm) cN0 cM0 ANATOMOCAL STAGE 1 CLINICAL PROGNOSTIC STAGE : pending ER/GA GENETICS: pending PLAN: 1: awaiting ER/GA/Her2 results from [facility] 2. Will obtain MRI breast to delineate extent of disease. BMP will be orders to assess kidney function 3. Will defer surgical procedure planning until MRI results are available 4. Preop testing/ medical clearance will need to be obtained prior to surgery 5. Genetics are pending 6. Oncotype DX postop if invasive cancer meets testing criteria and no NAC done 7. Referral to Medical Oncology post surgery 8. Referral to Radiation Oncology post surgery I reviewed the breast imaging with Ms. Rincon and her family. We have reviewed the overall breast cancer evaluation and staging. Based on the current information Ms. Rincon had INVASIVE LOBULAR CARCINOMA GRADE 2. The cancer measures 1.8cm on US hence this puts it into T1c category. We are still waiting for results of ER/GA/Her2. Specimen was sent to [facility] for evaluation. She does not have palpable axillary lymph nodes on exam. Based on this information, her lymph node status is described as N0. I will order MRI breast to further delineate extent of the tumor which will also allow for evaluation of the lymph nodes. I have discussed various component of multidisciplinary approach to breast cancer which includes local treatments with surgery and radiation therapy and systemic treatments with antihormonal pill and possible chemotherapy. Regarding surgical component of the treatment, I explained to her that, surgery carries risks and potential complications, most common of which are risk of bleeding, infection and injury to surrounding structures like skin, nipple, muscle, lung, nerves especially long thoracic nerve and thoracodorsal nerve. Postsurgical complications may include, but are not limited to, numbness of the skin and or nipple, scarring, bruising, hematomas, seromas, flap and/or nipple necrosis, lymphedema, nerve injury causing weakness in motor function of upper extremity or scapula, contour deformity, poor cosmetic outcomes and need for additional surgeries. Those risks were explained to the patient and she expressed understanding. We have discussed that with breast conserving surgery there is a higher risk of locoregional recurrence of tumor because there is more lovelock breast tissue left behind. The percentage of locoregional recurrence is lower with mastectomy than with breast conserving surgery but it is not zero as it is impossible to remove 100% of all breast tissue cells during mastectomy. There is also 10-20% chance of positive margins with breast conserving surgery which will warrant additional surgery to clear those margins. I also explained that with breast conserving surgery she may need to have radiation therapy in order to assure equal survival between the breast conservative treatment and mastectomy. Radiation therapy after mastectomy will be warranted only if the final mastectomy margins are positive or if lymph nodes are positive. We have also discussed that if she chooses mastectomy, she is entitled to reconstruction if she wishes to have it. Reconstruction options will be discussed in details with plastic surgeon. I have explained to the patient that reconstruction is considered part of breast cancer treatment and is covered by insurance. I explained that in cases of invasive cancer, we pursue sentinel lymph node biopsy in fit patients in addition to removal of the tumor from the breast. I explained that this is done to test the very first lymph nodes draining the breast for presence of cancer. This will be done with radionucleotide injection and possibly with blue dye tracer. If the lymph nodes contain cancer, depending on what surgery was performed and how many lymph nodes are positive, additional surgery and/ or radiation therapy to axilla may be warranted as well. I will send a prescription for the EMLA cream to be applied to the affected nipple in order to decrease discomfort of injections. Regarding evaluation of contralateral breast, she had a screening mammogram done recently which did not show suspicious lesions in the contralateral breast per radiology report. I am also planning to get the MRI breast which will help to evaluate the contralateral breast. Since patient was diagnosed with breast cancer, she qualifies for genetic testing. Provided her previously with the kit and the genetic testing result is pending. I will call patient with the information. I discussed with the patient and her family that Oncotype Dx is used to predict the probability of cancer coming back. I explained that if the test comes back with a high score, chemotherapy may be considered. I will place referral for Medical Oncology. This appointment can be scheduled after surgery. I explained to the patient that she may need to follow up with radiation oncology if she wants to pursue breast conserving surgery or if lymph nodes or mastectomy margins are positive. I will place this referral. She can schedule appointment with [facility] after surgery. Finally, I asked patient to schedule appointment with her primary care doctor as we will need a surgical clearance, latest labs and imaging (CBC, BMP, CXR,EKG). All questions were answered. Patient and her family agree with the plan. Nov, Abnormal mammogram of right breast (ICD-10 - R92 .8) s/p R US bx of suspicious lesion at 9:00 3CFN 12/02/20 done by me Path: [facility], discussed today Nov, Breast mass, left (ICD-10 - N63.20) We have discussed results of the L breast US at the site of left denser tissue at 9:00. No suspicious lesions were seen in this location. Copy of the US report was given to the patient. Nov, Family history of breast can cer in first degree relative (ICD-10 - Z80.3) Patient is eligible for genetic testing base on family Hx. Nov, Family hx of ovarian malignancy (ICD-10 - Z80.41 ) Patient is eligible for genetic testing base on family Hx. Nov, Genetic testing (ICD-10 - Z13.79) pending Nov, Long-term use of aspirin therapy (ICD-10 - Z79.8 2) ot to resume ASA now, will need to hold again for surgery Nov, Type 2 diabetes mellitus wit hout complication, unspecified whether fpc insulin use (ICD-10 - E11.9) Hb A1C 6.7, managed by PCP Nov, Other Time spent face to face with the patient with over 50 % of time spent counseling the patient : 60 min PLAN OF TREATMENT Treatment Notes Assessment Notes Clinical Notes Malignant neoplasm of right female breas t, unspecified estrogen receptor status, unspecified site of breast RIGHT 9:00 3CFN BREAST CANCERILC GRADE 2 ER ? GA ? HER2 ?cT 1c ( 1.8 cm) cN0 [id number] STAGE 1CLINICAL PROGNOSTIC STAGE : pending ER/PRGENETICS: pendingPLAN:1: awaiting ER/GA/Her2 results from [facility]. Will obtain MRI breast to delineate extent of disease. BMP will be orders to assess kidney function3. Will defer surgical procedure planning until MRI results are available4. Preop testing/ medical clearance will need to be obtained prior to surgery5. Genetics are pending6. Oncotype DX postop if invasive cancer meets testing criteria and no NAC done7. Referral to Medical Oncology post surgery8. Referral to Radiation Oncology post surgeryI reviewed the breast imaging with Ms. Rincon and her family. We have reviewed the overall breast cancer evaluation and staging. Based on the current information Ms. Rincon had INVASIVE LOBULAR CARCINOMA GRADE 2. The cancer measures 1.8cm on US hence this puts it into T1c category.We are still waiting for results of ER/GA/Her2. Specimen was sent to [facility] for evaluation.She does not have palpable axillary lymph nodes on exam. Based on this information, her lymph node status is described as N0.I will order MRI breast to further delineate extent of the tumor which will also allow for evaluation of the lymph nodes.I have discussed various component of multidisciplinary approach to breast cancer which includes local treatments with surgery and radiation therapy and systemic treatments with antihormonal pill and possible chemotherapy.Regarding surgical component of the treatment, I explained to her that, surgery carries risks and potential complications, most common of which are risk of bleeding, infection and injury to surrounding structures like skin, nipple, muscle, lung, nerves especially long thoracic nerve and thoracodorsal nerve. Postsurgical complications may include, but are not limited to, numbness of the skin and or nipple, scarring, bruising, hematomas, seromas, flap and/or nipple necrosis, lymphedema, nerve injury causing weakness in motor function of upper extremity or scapula, contour deformity, poor cosmetic outcomes and need for additional surgeries. Those risks were explained to the patient and she expressed understanding.We have discussed that with breast conserving surgery there is a higher risk of locoregional recurrence of tumor because there is more lovelock breast tissue left behind. The percentage of locoregional recurrence is lower with mastectomy than with breast conserving surgery but it is not zero as it is impossible to remove 100% of all breast tissue cells during mastectomy. There is also 10-20% chance of positive margins with breast conserving surgery which will warrant additional surgery to clear those margins. I also explained that with breast conserving surgery she may need to have radiation therapy in order to assure equal survival between the breast conservative treatment and mastectomy. Radiation therapy after mastectomy will be warranted only if the final mastectomy margins are positive or if lymph nodes are positive.We have also discussed that if she chooses mastectomy, she is entitled to reconstruction if she wishes to have it. Reconstruction options will be discussed in details with plastic surgeon. I have explained to the patient that reconstruction is considered part of breast cancer treatment and is covered by insurance.I explained that in cases of invasive cancer, we pursue sentinel lymph node biopsy in fit patients in addition to removal of the tumor from the breast. I explained that this is done to test the very first lymph nodes draining the breast for presence of cancer. This will be done with radionucleotide injection and possibly with blue dye tracer. If the lymph nodes contain cancer, depending on what surgery was performed and how many lymph nodes are positive, additional surgery and/ or radiation therapy to axilla may be warranted as well. I will send a prescription for the EMLA cream to be applied to the affected nipple in order to decrease discomfort of injections.Regarding evaluation of contralateral breast, she had a screening mammogram done recently which did not show suspicious lesions in the contralateral breast per radiology report. I am also planning to get the MRI breast which will help to evaluate the contralateral breast.Since patient was diagnosed with breast cancer, she qualifies for genetic testing. Provided her previously with the kit and the genetic testing result is pending. I will call patient with the information.I discussed with the patient and her family that Oncotype Dx is used to predict the probability of cancer coming back. I explained that if the test comes back with a high score, chemotherapy may be considered.I will place referral for Medical Oncology. This appointment can be scheduled after surgery.I explained to the patient that she may need to follow up with radiation oncology if she wants to pursue breast conserving surgery or if lymph nodes or mastectomy margins are positive. I will place this referral. She can schedule appointment with [facility] after surgery.Finally, I asked patient to schedule appointment with her primary care doctor as we will need a surgical clearance, latest labs and imaging (CBC, BMP, CXR,EKG).All questions were answered. Patient and her family agree with the plan. Abnormal mammogram of right breast s/p R US bx of susp icious lesion at 9:00 3CFN 12/02/20 done by Kwame: [facility], discussed today Breast mass, left We have discussed results of the L breast US at the site of left denser tissue at 9:00. No suspicious lesions were seen in this location.Copy of the US report was given to the patient. Family history of breast cancer in first degree relati ve Patient is eligible for genetic testing base on family Hx. Family hx of ovarian malignancy Patient is eligible fo r genetic testing base on family Hx. Genetic testing pending Long-term use of aspirin therapy ot to resume ASA now, will need to hold again for surgery Type 2 diabetes mellitus without complic ation, unspecified whether keno terminal operator insulin use Hb A1C 6.7, managed by PCP Treatment Notes Test Name Order Date MRI Breast Bilat with and w/o Cont 2020-12-07 Basic Metabolic Profile (BMP) 2020-12-07 Next Appt Details Provider Name:Melany Hinojosa, 2021-03-17 02:3 0:00 PM, [address] [place], [address], Insurance Providers Payer Name Payer Address Payer Phone Insured Name Patient Relati onship to Insured Coverage Start Date Coverage End Date [facility]AN [facility] [address] [facility] [phone] JONO RINCON self
--- OUTSIDE RECORDS SUMMARY | 2021-01-05 07:43 | CCD ---
Author Author [employer] [facility] Organization [facility] [employer] [facility] Address Unknown Phone Unavailable Care Team Providers Care Speech Language Assistant Name Role Phone Suzy Strange Unavailable PROBLEMS Type Condition ICD9-CM Code [id number] Code Onset Dates Condition S tatus SNOMED Code Notes Problem Family history of breast cancer in sister Z80.3 Active 855102003 Problem Postmenopausal status Z78.0 Active 12203160 Problem DM w/o complication type II E11.9 Active 3134 03082 Problem Essential hypertension I10 Active 19409589 Problem Vitamin D deficiency E55.9 Active 50355055 Problem Type 2 diabetes mellitus wit hout complication, unspecified whether long term care phlebotomist insulin use E11.9 Active 697797496 Problem Mixed hyperlipidemia E78.2 Active 431158855 Problem Malignant neoplasm of right female breast, unspecified estrogen receptor status, unspecified site of breast C50.911 Active 3 09503505 Problem Esophageal reflux K21.9 Active 669593322 Problem Macular cyst, hole, or pseudohole, left eye H35.34 2 Active 035498031 Problem Elevated LFTs R94.5 Active 853621861 Problem Age-related nuclear cataract, left eye H25.12 Active 713655446191156 Problem Abnormal mammogram of right breast R92.8 Activ e 760752230 ALLERGIES Allergen (clinical drug ingredient) Drug/Non Drug Allergy do cumented on EMR Reaction Allergy Type Onset Date Status lisinopril Lisinopril(NDC Code:[address]-08) Rash Drug Allergy Active valsartan Valsartan(NDC Code:[address]-65) rash Drug Allergy Active cold medication Rash Non Drug Allergy Act soy ENCOUNTERS from 1959 to 2020-12-11 Encounter Location Date Provider Diagnosis [facility] [address] [place] [address] Nov, Suzy Strange Abnormal mammogram of right breast R92.8 ; Breast mass, left N63.20 ; Family history of breast cancer in first degree relative Z80.3 ; Family hx of ovarian malignancy Z80.41 ; Genetic testing Z13.79 ; Long-term use of aspirin therapy Z79.82 and Type 2 diabetes mellitus without complication, unspecified whether long term care phlebotomist insulin use E11.9 IMMUNIZATIONS Vaccine Route Administration [...] Education Language: Question Answer Notes Languages spoken: Luxembourger Uatsdin: Question Answer Notes Uatsdin 05 Confucianist Sexual Hx: Question Answer Notes Had sex in the last 12 months (vaginal, oral, or anal)? No Drug and Alcohol Question Answer Notes Total Score: 0 Interpretation: No problems reported Tobacco Use: Question Answer Notes Are you a: never smoker REASON FOR REFERRAL No Information VITAL SIGNS Weight 180.1 lbs Nov, Weight-kg 81.69 kg Nov, Height 64 in Nov, BMI 30.91 kg/m2 Nov, Heart Rate 90 /min Nov, Respiratory Rate 18 /min Nov, Temperature 98.1 degrees Fahrenheit Nov, Oximetry 99 Nov, Blood pressure systolic 142 mm Hg Nov, Blood pressure diastolic 78 mm Hg Nov, MEDICATIONS Medication SIG (Take, Route, Frequency, Duration) Notes Start Da te End Date Status Lancets DX: E11.9 as directed - dailyand prn for 99 months Not-Taking Atorvastatin Calcium 10 MG 1 tablet Orally Once a day for 90 days Active [place] 3 1000 MG 2 capsule Orally Once a day Active Aspir-81 81 MG 1 tablet Orally Once a day Active Hydrochlorothiazide 25 MG 1 tablet Orally Once a day for 90 day(s) Active Drisdol 1.25 MG (89620 UT) 1 capsule Orally once a wee [...] 30 day(s) Active PROCEDURES No Information RESULTS Component Value Reference Range [facility] UNIL[facility]AL [facility]AM[facility] (Ultras ound if indicated) Reviewed date:12/07/2020 13:00:18 Interpretation: Performing Lab:[facility],[address]], ,[place] [id number] REASON FOR VISIT CA+5 MEDICAL (GENERAL) HISTORY Type Description Date Medical [...] Surgical History L eye macula hole repair -05-06 Surgical History Rt breast biopsy 12/02/20 Hospitalization History No Hospitalization history informati on Goals Section No Information Health Concerns No Information MEDICAL EQUIPMENT No Information MENTAL STATUS No Information FUNCTIONAL STATUS No Information ASSESSMENTS Encounter Date Diagnosis Assessment Notes Treatment Notes Treatm ent Clinical Notes Nov, Abnormal mammogram of right breast (ICD-10 - R92 .8) I reviewed the images with Ms. Cruz and explained that her right mammogram noted a spiculated lesion. I informed patient that sonographic correlate was found on ultrasound located at 9:00 3 CFN. This lesion is suspicious and needs to be evluated with the tissue sampling. Since the lesion was seen on the ultrasound, the biopsy can be done with ultrasound guidance. I briefly described the procedure to the patient. I explained that after biopsy a marking clip will be placed at the site of biopsy to allow easier localization of the lesion in case biopsy comes back concerning. After the biopsy she will have a gentle mammogram to confirm the position of the clip. I briefly describe risk and possible complications of the procedure including bleeding, infection, and injury to surrounding structures (nipple, skin, muscle, lung). I asked patient not to take any blood thinning medication including aspirin, ibuprofen and or Excedrin 5 days before her biopsy. She is already holding her ASA since last week. We'll schedule her for Right breast US guided bipsy of the lesion located at 9:00 3 CFN with clip placement and post biopsy right breast mammogram. All questions were answered. Patient agrees with the plan. Nov, Breast mass, left (ICD-10 - N63.20) I informed patient that on physical exam there is a denser tissue ridge in the left breast at 9:00. We will get focused left breast US to evaluate this. Further recs to follow. Nov, Family history of breast can cer in first degree relative (ICD-10 - Z80.3) Patient is eligible for genetic testing base on family Hx. Nov, Family hx of ovarian malignancy (ICD-10 - Z80.41 ) Patient is eligible for genetic testing base on family Hx. Nov, Genetic testing (ICD-10 - Z13.79) Patient participated in our cancer screening program and she was identified as a person who may be eligible for genetic testing due to her family history. Possible outcomes of genetic testing were discussed with patient with emphasis on the fact that the majority of cancers are not related to germline mutations but are rather due to somatic mutations. I have explained that the genetic testing can come back as positive for specific pathological gene mutation, as negative, or as variant of unknown significance (VUS) which means that there is duration in the gene however we do not have enough information to determine the significance importance of this ulceration. I explained to the patient that we do not asked on VUS and treat them as negative until they are reclassified as pathologically significant mutation or benign alteration. We have discussed that regardless of test outcome patient cannot have her health insurance denied in the future. Patient is interested in proceeding with genetic testing. We will provide her with the blood kit today. We will update her about the results of genetic testing when the test is completed. Nov, Long-term use of aspirin therapy (ICD-10 - Z79.8 2) Currently held for Bx on Nov, Type 2 diabetes mellitus wit hout complication, unspecified whether skilled nursing insulin use (ICD-10 - E11.9) Hb A1C 6.7, managed by PCP PLAN OF TREATMENT Treatment Notes Assessment Notes Clinical Notes Abnormal mammogram of right breast I reviewed the imag es with Ms. Cruz and explained that her right mammogram noted a spiculated lesion. I informed patient that sonographic correlate was found on ultrasound located at 9:00 3 CFN. This lesion is suspicious and needs to be evluated with the tissue sampling.Since the lesion was seen on the ultrasound, the biopsy can be done with ultrasound guidance. I briefly described the procedure to the patient. I explained that after biopsy a marking clip will be placed at the site of biopsy to allow easier localization of the lesion in case biopsy comes back concerning. After the biopsy she will have a gentle mammogram to confirm the position of the clip.I briefly describe risk and possible complications of the procedure including bleeding, infection, and injury to surrounding structures (nipple, skin, muscle, lung).I asked patient not to take any blood thinning medication including aspirin, ibuprofen and or Excedrin 5 days before her biopsy. She is already holding her ASA since last week.We'll schedule her for Right breast US guided bipsy of the lesion located at 9:00 3 CFN with clip placement and post biopsy right breast mammogram.All questions were answered. Patient agrees with t he plan. Breast mass, left I informed patient that on p hysical exam there is a densertissue ridge in the left breast at 9:00. We will get focused left breast US toevaluate this. Further recs to follow. Family history of breast cancer in first degree relati ve Patient is eligible for genetic testing base on family Hx. Family hx of ovarian malignancy Patient is eligible fo r genetic testing base on family Hx. Genetic testing Patient participated in our cancer screening program and she was identified as a person who may be eligible for genetic testing due to her family history.Possible outcomes of genetic testing were discussed with patient with emphasis on the fact that the majority of cancers are not related to germline mutations but are rather due to somatic mutations.I have explained that the genetic testing can come back as positive for specific pathological gene mutation, as negative, or as variant of unknown significance (VUS) which means that there is duration in the gene however we do not have enough information to determine the significance importance of this ulceration. I explained to the patient that we do not asked on VUS and treat them as negative until they are reclassified as pathologically significant mutation or benign alteration.We have discussed that regardless of test outcome patient cannot have her health insurance denied in the future.Patient is interested in proceeding with genetic testing. We will provide her with the blood kit today. We will update her about the results of genetic testing when the test is completed. Long-term use of aspirin therapy Currently held for Bx on We dnes Type 2 diabetes mellitus without complic ation, unspecified whether skilled nursing insulin use Hb A1C 6.7, managed by PCP Treatment Notes Test Name Order Date Breast U/S Unilateral Limited 2020-12-11 [facility] US Guided Breast Biopsy (Clip Placement if Indicat ed) 2020-12-11 Next Appt Details 12/02/2020 Reason:breast bx at 12 Provider Name:Melany Ashish, 2021-03-17 02:3 0:00 PM, [address] [place], [address], Follow Up:12/02/2020reast bx at 12 Insurance Providers Payer Name Payer Address Payer Phone Insured Name Patient Relati onship to Insured Coverage Start Date Coverage End Date [facility] [facility] [place] [address] [facility] [phone] [phone] JONO CRUZ
--- OUTSIDE RECORDS SUMMARY | 2021-01-05 07:44 | CCD ---
Author Author [employer] [facility] Organization [facility] [facility] Address Unknown Phone Unavailable Care Team Providers Care Patient Transport Officer Name Role Phone Melany Hinojosa Unavailable PROBLEMS Type Condition ICD9-CM Code GTM79-US Code Onset Dates Condition S tatus SNOMED Code Notes Problem Family history of breast cancer in sister Z80.3 Active 175561495 Problem Postmenopausal status Z78.0 Active 87122215 Problem DM w/o complication type II E11.9 Active 3134 83309 Problem Essential hypertension I10 Active 66929860 Problem Vitamin D deficiency E55.9 Active 15645539 Problem Type 2 diabetes mellitus wit hout complication, unspecified whether system development engineer insulin use E11.9 Active 664736227 Problem Mixed hyperlipidemia E78.2 Active 443404349 Problem Malignant neoplasm of right female breast, unspecified estrogen receptor status, unspecified site of breast C50.911 Active 3 48375002 Problem Esophageal reflux K21.9 Active 863645265 Problem Macular cyst, hole, or pseudohole, left eye H35.34 2 Active 045207618 Problem Elevated LFTs R94.5 Active 272102006 Problem Age-related nuclear cataract, left eye H25.12 Active 656400331443066 Problem Abnormal mammogram of right breast R92.8 Activ e 487317486 ALLERGIES Allergen (clinical drug ingredient) Drug/Non Drug Allergy do cumented on EMR Reaction Allergy Type Onset Date Status lisinopril Lisinopril(NDC Code:[address]-50) Rash Drug Allergy Active valsartan Valsartan(NDC Code:[address]-37) rash Drug Allergy Active cold medication Rash Non Drug Allergy Act soy ENCOUNTERS from 1960 to 2020 Encounter Location Date Provider Diagnosis [address] [place] [address] Nov, 021 Melany Hinojosa DM w/o complication type II E11.9 ; Essential hypertension I10 ; Esophageal reflux K21.9 ; Vitamin D deficiency E55.9 and Mixed hyperlipidemia E78.2 IMMUNIZATIONS Vaccine Route Administration Date Status Influenza [...] Education Language: Question Answer Notes Languages spoken: Maltese Holiness: Question Answer Notes Holiness 05 Episcopal Sexual Hx: Question Answer Notes Had sex in the last 12 months (vaginal, oral, or anal)? No Drug and Alcohol Question Answer Notes Total Score: 0 Interpretation: No problems reported Tobacco Use: Question Answer Notes Are you a: never smoker REASON FOR REFERRAL No Information VITAL SIGNS Weight 178 lbs Nov, Height 64 in Nov, BMI 30.55 kg/m2 Nov, Heart Rate 90 /min Nov, Respiratory Rate 20 /min Nov, Temperature 98.3 degrees Fahrenheit Nov, Oximetry 97 Nov, Blood pressure systolic 140 mm Hg Nov, Blood pressure diastolic 80 mm Hg Nov, MEDICATIONS Medication SIG (Take, Route, Frequency, Duration) Notes Start Da te End Date Status Lancets DX: E11.9 as directed - dailyand prn for 99 months Not-Taking Atorvastatin Calcium 10 MG 1 tablet Orally Once a day for 90 days Active [place] 3 1000 MG 2 capsule Orally Once a day Active Aspir-81 81 MG 1 tablet Orally Once a day Active Hydrochlorothiazide 25 MG 1 tablet Orally Once a day for 90 day(s) Active Drisdol 1.25 MG (76822 UT) 1 capsule Orally once a wee [...] Information RESULTS No Results REASON FOR VISIT with Talita Hinojosa in 2-3 months DM CP labs from Aug MEDICAL (GENERAL) HISTORY Type Description Date Medical [...] Treatment Notes Treatm ent Clinical Notes Nov, DM w/o complication type II (ICD-10 - E11.9) Nov, Essential hypertension (ICD-10 - I10) intolerant to lisinipril and ARB. Continue with thiazide, monitor BP at home Nov, Esophageal reflux (ICD-10 - K21.9) Nov, Vitamin D deficiency (ICD-10 - E55.9) Nov, Mixed hyperlipidemia (ICD-10 - E78.2) hold atorvastatin due to elevated LFTs PLAN OF TREATMENT Treatment Notes Assessment Notes Clinical Notes Essential hypertension intolerant to lis inipril and ARB. Continue with thiazide, monitor BP at home Mixed hyperlipidemia hold atorvastatin due to elevated LFTs Future Test Test Name Order Date Comprehensive Metabolic Profile (CMP) 20210224 HEMOGLOBIN A1c 20210224 LIPID PANEL (CARDIAC RISK) 20210224 VITAMIN D 25-HYDROXY 20210224 Next Appt Details 3 Months(30min) Reason:f/u after labs Provider Name:Melany Hinojosa, 2021-03-17 02:3 0:00 PM, [address] [place], [address], Follow Up:3 Months(30min)f/u after labs Insurance Providers Payer Name Payer Address Payer Phone Insured Name Patient Relati onship to Insured Coverage Start Date Coverage End Date [facility] [facility] [place] [address] [facility] [address] JONO RINCON
--- OUTSIDE RECORDS SUMMARY | 2021-01-05 07:45 | CCD ---
Author Author [employer] [facility] Organization [employer] [facility] [employer] Address Unknown Phone Unavailable Care Team Providers Care Systems Trainer Name Role Phone Suzy Strange Unavailable PROBLEMS Type Condition ICD9-CM Code LGB97-ZV Code Onset Dates Condition S tatus SNOMED Code Notes Problem Esophageal reflux K21.9 Active 577377208 Problem Mixed hyperlipidemia E78.2 Active 229642423 Problem DM w/o complication type II E11.9 Active 9992 81686 Problem Age-related nuclear cataract, left eye H25.12 Active 178169877594312 Problem Family history of breast cancer in sister Z80.3 Active 259027998 Problem Abnormal mammogram of right breast R92.8 Activ e 594014120 Problem Postmenopausal status Z78.0 Active 02040458 Problem Essential hypertension I10 Active 14083484 Problem Vitamin D deficiency E55.9 Active 76722438 Problem Macular cyst, hole, or pseudohole, left eye H35.34 2 Active 867292001 Problem Elevated LFTs R94.5 Active 984445706 ALLERGIES Allergen (clinical drug ingredient) Drug/Non Drug Allergy do cumented on EMR Reaction Allergy Type Onset Date Status lisinopril Lisinopril(NDC Code:[address]-84) Rash Drug Allergy Active valsartan Valsartan(NDC Code:[address]-20) rash Drug Allergy Active cold medication Rash Non Drug Allergy Act soy ENCOUNTERS from 1959 to 2020-12-01 Encounter Location Date Provider Diagnosis [facility] [address] [place] [phone] Nov, Suzy Strange IMMUNIZATIONS Vaccine Route Administration [...] Answer Notes Level of Education: High School Language: Question Answer Notes Languages spoken: Montenegrin Orthodox: Question Answer Notes Orthodox 05 Zoroastrianism Sexual Hx: Question Answer Notes Had sex in the last 12 months (vaginal, oral, or anal)? No Tobacco Use: Question Answer Notes Are you a: never smoker REASON FOR REFERRAL No Information VITAL SIGNS No information MEDICATIONS Medication SIG (Take, Route, Frequency, Duration) Notes Start Da te End Date Status Glucometer - as directed - daily for 99 months Not-Taking Vitamin D 2000 UNIT 2 tabs with food Orally Once a day Active Atorvastatin Calcium 10 MG 1 tablet Orally Once a day for 90 days Active Drisdol 1.25 MG (42275 UT) 1 capsule Orally once a week, take with me al Active Biotin 09411 mg 1 tablet Orally Once a day Not-Taking Mupirocin 2 % 1 application Externally Three times a day for 1 0 days Nov, Not-Taking Fish Oil 1000 MG 1 capsule Orally Once a day Not-Taking [place] 3 1000 MG 2 capsule Orally Once a day Active Flax Seed Oil 1000 MG 1 cap Orally daily Not-Taking Omeprazole 20 mg 1 capsule Orally Once a day for 30 Active Metformin HCl 500 MG 2 tabs Orally daily Active Aspir-81 81 MG 1 tablet Orally Once a day Active Hydrochlorothiazide 25 mg 1 tablet Orally Once a day for 90 day(s) Active Lancets DX: E11.9 as directed - dailyand prn for 99 months Not-Taking Blood Glucose Test DX: E11.9 as directed In Vitro fasting daily for 99 months Not-Taking PROCEDURES No Information RESULTS No Results REASON FOR VISIT left breast u/s MEDICAL (GENERAL) HISTORY Type Description Date Medical [...] ligation 1980 Surgical History T & A 1967 Surgical History colonoscopy - diverticulosis, f/up 5-10y rs, Reindl 05/01 Surgical History EGD -normal, Reindl 05/01 Surgical History L eye macula hole repair 12-26-16 Hospitalization History No know Hospitalization history Goals Section No Information Health Concerns No Information MEDICAL EQUIPMENT No Information MENTAL STATUS No Information FUNCTIONAL STATUS No Information ASSESSMENTS No Information PLAN OF TREATMENT Next Appt Details Provider Name:Suzy Strange, 10-12-12 12:00:00 AM, [address] [place] [address], [phone], Provider Name:Melany Hinojosa, 2020-12-03 04:0 0:00 PM, [address] [place] [address], [phone], Provider Name:Suzy Strange, 10-12-17 04:00:00 PM, [address] [place] [address], [phone], Provider Name:Suzy Strange, 10-12-19 04:15:00 PM, [address] [place] [address], [id number], Insurance Providers Payer Name Payer Address Payer Phone Insured Name Patient Relati onship to Insured Coverage Start Date Coverage End Date [facility] [address] [facility] [phone] JONO RINCON
--- OUTSIDE RECORDS SUMMARY | 2021-01-05 07:45 | CCD | Summary of Care ---
Author Author [facility] Organization [facility] Address Unknown Phone Unavailable Care Team Providers Care Labor Law Professor Name Role Phone Melany Hinojosa DIFFUSER OPERATOR PCP Encounter Details Care Team Description Date Type Department 2020 [facility] Anatomical Encounter Pathology at [address] [place] [address] Allergies Not on Filedocumented as of this encounter (statuses as of 12/09/2020) Medications Not on filedocumented as of this encounter (statuses as of 12/09/2020) Active Problems Not on filedocumented as of this encounter (statuses as of 12/09/2020) Social History Date Tobacco Use Types Packs/Day Years Used Never Assessed Sex Assigned at Date Recorded Not on file documented as of this encounter Last Filed Vital Signs Not on filedocumented in this encounter Plan of Treatment Date/Time Name Type Priority Associated Diag noses 2020 10:43 AM EST Surgical pathology Pathology and Routine consult Cytology Order Schedule Name Type Priority Associated Diag noses Once for 1 Occurrences starting 12/08/19 21 until 2020 Surgical pathology Pathology and Routine consult Cytology Health Maintenance Due Date Last Done Comments Hepatitis C Screening (B. 1960 5693-1328) MMR Vaccines (1 of 1 - 1960 Standard series) Varicella Vaccines (1 of 1960 2 - 2-dose childhood series) DTaP,Tdap,and Td Vaccines 1966 (1 - Tdap) HIV Screening 1972 Cervical Cancer Screening 1980 5 years Breast Cancer Screening 2 2009 years Colon Cancer Screening 10 2009 yrs Zoster Vaccines (1 of 2) 2009 Pneumococcal Vaccine: 65+ 2024 Years (1 of 1 - PPSV23) Influenza Vaccine Completed 09/04/2020, 09/19/2019, 09/20/2017, Additional history exists HIB Vaccines Aged Out No longer eligible based on patient's age to complete this topic Hepatitis A Vaccines Aged Out No longer eligibl e based on patient's age to complete this topic Hepatitis B Vaccines Aged Out No longer eligibl e based on patient's age to complete this topic IPV Vaccines Aged Out No longer eligible based on patient's age to complete this topic Pneumococcal Vaccine: Aged Out No longer eligib le based on patient's age to Pediatrics (0 to 5 Years) complete this topic and At-Risk Patients (6 to 64 Years) documented as of this encounter Results Not on filedocumented in this encounter
--- OUTSIDE RECORDS SUMMARY | 2021-01-05 07:46 | CCD ---
Author Author [facility] Organization [facility] [employer] [facility] Address Unknown Phone Unavailable Care Team Providers Care It Desktop Support Technician Name Role Phone Melany Hinojosa PROBLEMS Type Condition ICD9-CM Code [id number] Code Onset Dates Condition S tatus SNOMED Code Notes Problem Esophageal reflux K21.9 Active 222546003 Problem Mixed hyperlipidemia E78.2 Active 752111983 Problem DM w/o complication type II E11.9 Active 3133 33958 Problem Age-related nuclear cataract, left eye H25.12 Active 971886817172448 Problem Family history of breast cancer in sister Z80.3 Active 086252232 Problem Abnormal mammogram of right breast R92.8 Activ e 024179050 Problem Postmenopausal status Z78.0 Active 56667057 Problem Essential hypertension I10 Active 82722867 Problem Vitamin D deficiency E55.9 Active 65923644 Problem Macular cyst, hole, or pseudohole, left eye H35.34 2 Active 303583173 Problem Elevated LFTs R94.5 Active 368770510 ALLERGIES Allergen (clinical drug ingredient) Drug/Non Drug Allergy do cumented on EMR Reaction Allergy Type Onset Date Status lisinopril Lisinopril(NDC Code:[address]-25) Rash Drug Allergy Active valsartan Valsartan(NDC Code:[address]-99) rash Drug Allergy Active cold medication Rash Non Drug Allergy Act soy ENCOUNTERS from 1959 to 2020-11-28 Encounter Location Date Provider Diagnosis [address] [address] Nov, 021 Melany Hinojosa IMMUNIZATIONS Vaccine Route Administration Date Status Influenza [...] School Language: Question Answer Notes Languages spoken: Brazilian Restorationist: Question Answer Notes Restorationist 05 Mandaeism Sexual Hx: Question Answer Notes Had sex in the last 12 months (vaginal, oral, or anal)? No Tobacco Use: Question Answer Notes Are you a: never smoker REASON FOR REFERRAL No Information VITAL SIGNS No information MEDICATIONS Medication SIG (Take, Route, Frequency, Duration) Notes Start Da te End Date Status Hydrochlorothiazide 25 mg 1 tablet Orally Once a day for 90 day(s) Active Fish Oil 1000 MG 1 capsule Orally Once a day Not-Taking Blood Glucose Test DX: E11.9 as directed In Vitro fasting daily for 99 months Not-Taking Glucometer - as directed - daily for 99 months Not-Taking Aspir-81 81 MG 1 tablet Orally Once a day Not-Taking Omeprazole 20 mg 1 capsule Orally Once a day for 30 Active Biotin 06200 mg 1 tablet Orally Once a day Not-Taking Vitamin D 2000 UNIT 2 tabs with food Orally Once a day Not-Taking Lancets DX: E11.9 as directed - dailyand prn for 99 months Not-Taking Drisdol 1.25 MG (96106 UT) 1 capsule Orally once a week, take with me al Active Rogers 3 1000 MG 2 capsule Orally Once a day Active Metformin HCl 500 MG 2 tabs Orally daily Active Atorvastatin Calcium 10 MG 1 tablet Orally Once a day for 90 days Active Flax Seed Oil 1000 MG 1 cap Orally daily Not-Taking Mupirocin 2 % 1 application Externally Three times a day for 1 0 days Nov, Not-Taking PROCEDURES No Information RESULTS No Results REASON FOR VISIT asa MEDICAL (GENERAL) HISTORY Type Description Date Medical [...] macula hole repair 12-26-16 Hospitalization History No Hospitalization history informati on Goals Section No Information Health Concerns No Information MEDICAL EQUIPMENT No Information MENTAL STATUS No Information FUNCTIONAL STATUS No Information ASSESSMENTS No Information PLAN OF TREATMENT Medication Medication Name Sig Start Date Stop Date Omeprazole 20 mg 1 capsule Orally Once a day for 30 Atorvastatin Calcium 10 MG 1 tablet Orally Once a day for 90 day s Drisdol 1.25 MG (46945 UT) 1 capsule Orally once a week, take wi th meal Metformin HCl 500 MG 2 tabs Orally daily Hydrochlorothiazide 25 mg 1 tablet Orally Once a day for 90 day( s) Next Appt Details Provider Name:Suzy Strange, 10-12-10 04:00:00 PM, [address] [place] [address], [id number], Provider Name:Suzy Strange, 10-12-12 12:00:00 AM, [address] [place] [address], [id number], Provider Name:Melany Hinojosa, 2020-12-03 04:0 0:00 PM, [address] [place] [address], [phone], Insurance Providers Payer Name Payer Address Payer Phone Insured Name Patient Relati onship to Insured Coverage Start Date Coverage End Date [facility] [place] [address] [facility] [phone] JONO RINCON
--- OUTSIDE RECORDS SUMMARY | 2021-01-05 07:47 | CCD ---
Author Author [facility] Organization [facility] Address Unknown Phone Unavailable Care Team Providers Care Oven Attendant Name Role Phone Mary Rossi Unavailable PROBLEMS Type Condition ICD9-CM Code [id number] Code Onset Dates Condition S tatus SNOMED Code Notes Problem Esophageal reflux K21.9 Active 004366007 Problem Mixed hyperlipidemia E78.2 Active 645345250 Problem DM w/o complication type II E11.9 Active 9939 65152 Problem Age-related nuclear cataract, left eye H25.12 Active 278935426016997 Problem Family history of breast cancer in sister Z80.3 Active 242131859 Problem Abnormal mammogram of right breast R92.8 Activ e 329101625 Problem Postmenopausal status Z78.0 Active 17159170 Problem Essential hypertension I10 Active 58892523 Problem Vitamin D deficiency E55.9 Active 56249802 Problem Macular cyst, hole, or pseudohole, left eye H35.34 2 Active 746753218 Problem Elevated LFTs R94.5 Active 357762087 ALLERGIES Allergen (clinical drug ingredient) Drug/Non Drug Allergy do cumented on EMR Reaction Allergy Type Onset Date Status lisinopril Lisinopril(NDC Code:[address]-17) Rash Drug Allergy Active valsartan Valsartan(NDC Code:[address]-44) rash Drug Allergy Active cold medication Rash Non Drug Allergy Act soy ENCOUNTERS from 1959 to 2020-11-27 Encounter Location Date Provider Diagnosis [address] [address] Oct, Mary Flo Abnormal mammogram R92.8 IMMUNIZATIONS Vaccine Route Administration Date Status Influenza [...] School Language: Question Answer Notes Languages spoken: Somali Denominational: Question Answer Notes Denominational 05 Yazidism Sexual Hx: Question Answer Notes Had sex [...] Once a day for 30 Active Biotin 19803 mg 1 tablet Orally Once a day Not-Taking Vitamin D 2000 UNIT 2 tabs with food Orally Once a day Not-Taking Lancets DX: E11.9 as directed - dailyand prn for 99 months Not-Taking Drisdol 1.25 MG (54971 UT) 1 capsule Orally once a week, take with me al Active Powell 3 1000 MG 2 capsule Orally Once [...] Information RESULTS No Results REASON FOR VISIT Cat 0 Mammogram MEDICAL (GENERAL) HISTORY Type Description Date Medical [...] Notes Treatment Notes Treatm ent Clinical Notes Oct, Abnormal mammogram (ICD-10 - R92.8) PLAN OF TREATMENT Medication Medication Name Sig Start Date Stop Date Omeprazole 20 mg 1 capsule Orally Once a day for 30 Atorvastatin Calcium 10 MG 1 tablet Orally Once a day for 90 day s Drisdol 1.25 MG (47164 UT) 1 capsule Orally once a week, take meal Metformin HCl 500 MG 2 tabs Orally daily Hydrochlorothiazide 25 mg 1 tablet Orally Once a day for 90 day( s) Future Test Test Name Order Date Digital Mammo Diagnostic Unila (Ultrasound if indicate d) [id number] Next Appt Details Provider Name:Suzy Strange, 10-12-10 04:00:00 PM, [address] [place] [address], [id number], Provider Name:Suzy Strange, 10-12-12 12:00:00 AM, [address] [place] [address], [phone], Provider Name:Melany Hinojosa, 2020-12-03 04:0 0:00 PM, [address] [place] [address], [phone], Insurance Providers Payer Name Payer Address Payer Phone Insured Name Patient Relati onship to Insured Coverage Start Date Coverage End Date [facility] [address] [facility] [phone] JONO RINCON
--- OUTSIDE RECORDS SUMMARY | 2021-01-05 07:48 | CCD ---
Author Author [facility] Organization [facility] [facility] Address Unknown Phone Unavailable Care Team Providers Care Log Operations Coordinator Name Role Phone Melany Hinojosa PROBLEMS Type Condition ICD9-CM Code [id number] Code Onset Dates Condition S tatus SNOMED Code Notes Problem Esophageal reflux K21.9 Active 549258836 Problem Mixed hyperlipidemia E78.2 Active 654450165 Problem DM w/o complication type II E11.9 Active 9994 73582 Problem Age-related nuclear cataract, left eye H25.12 Active 706878299492035 Problem Family history of breast cancer in sister Z80.3 Active 828452660 Problem Abnormal mammogram of right breast R92.8 Activ e 795529613 Problem Postmenopausal status Z78.0 Active 70061348 Problem Essential hypertension I10 Active 07213274 Problem Vitamin D deficiency E55.9 Active 95247496 Problem Macular cyst, hole, or pseudohole, left eye H35.34 2 Active 810329147 Problem Elevated LFTs R94.5 Active 829132256 ALLERGIES Allergen (clinical drug ingredient) Drug/Non Drug Allergy do cumented on EMR Reaction Allergy Type Onset Date Status lisinopril Lisinopril(NDC Code:[address]-74) Rash Drug Allergy Active valsartan Valsartan(NDC Code:[address]-84) rash Drug Allergy Active cold medication Rash Non Drug Allergy Act soy ENCOUNTERS from 1959 to 2020-11-27 Encounter Location Date Provider Diagnosis [address] [address] Nov, 2 021 Melany Hinojosa Abnormal mammogram of right breast R92.8 IMMUNIZATIONS Vaccine Route Administration Date Status [...] School Language: Question Answer Notes Languages spoken: Northern Irish Scientologist: Question Answer Notes Scientologist 05 Advent Sexual Hx: Question Answer Notes Had sex [...] Once a day for 30 Active Biotin 92695 mg 1 tablet Orally Once a day Not-Taking Vitamin D 2000 UNIT 2 tabs with food Orally Once a day Not-Taking Lancets DX: E11.9 as directed - dailyand prn for 99 months Not-Taking Drisdol 1.25 MG (34549 UT) 1 capsule Orally once a week, take with me al Active Fanshawe 3 1000 MG 2 capsule Orally Once [...] Information RESULTS No Results REASON FOR VISIT abnormal mammo MEDICAL (GENERAL) HISTORY Type Description Date Medical [...] of right breast (ICD-10 - R92 .8) PLAN OF TREATMENT Medication Medication Name Sig Start Date Stop Date Omeprazole 20 mg 1 capsule Orally Once a day for 30 Atorvastatin Calcium 10 MG 1 tablet Orally Once a day for 90 day s Drisdol 1.25 MG (03289 UT) 1 capsule Orally once a week, take meal Metformin HCl 500 MG 2 tabs Orally daily Hydrochlorothiazide 25 mg 1 tablet Orally Once a day for 90 day( s) Next Appt Details Provider Name:Suzy Strange, 10-12-10 04:00:00 PM, [address] [place] [address], [phone], Provider Name:Suzy Strange, 10-12-12 12:00:00 AM, [address] [place] [address], [phone], Provider Name:Melany Hinojosa, 2020-12-03 04:0 0:00 PM, [address] [place] [address], [phone], Insurance Providers Payer Name Payer Address Payer Phone Insured Name Patient Relati onship to Insured Coverage Start Date Coverage End Date [facility] [address] [facility] [phone] JONO RINCON
--- OUTSIDE RECORDS SUMMARY | 2021-01-05 07:49 | CCD ---
Author Author [facility] Organization [facility] Address Unknown Phone Unavailable Care Team Providers Care Bull Riveter Name Role Phone César Hilton MD Unavailable Unavailable César Hilton MD Unavailable Unavailable César Hilton MD Unavailable Unavailable César Hilton MD Unavailable Unavailable César Hilton MD Unavailable Unavailable César Hilton MD Unavailable Unavailable César Hilton MD Unavailable Unavailable César Hilton MD Unavailable Unavailable César Hilton MD Unavailable Unavailable César Hilton MD Unavailable Unavailable César Hilton MD Unavailable Unavailable César Hilton MD Unavailable Unavailable César Hilton MD Unavailable Unavailable César Hilton MD Unavailable Unavailable César Hilton MD Unavailable Unavailable César Hilton MD Unavailable Unavailable César Hilton MD Unavailable Unavailable César Hilton MD Unavailable Unavailable César Hilton MD Unavailable Unavailable César Hilton MD Unavailable Unavailable César Hilton MD Unavailable Unavailable César Hilton MD Unavailable Unavailable César Hilton MD Unavailable Unavailable César Hilton MD Unavailable Unavailable César Hilton MD Unavailable Unavailable César Hilton MD Unavailable Unavailable César Hilton MD Unavailable Unavailable César Hilton MD Unavailable Unavailable César Hilton MD Unavailable Unavailable César Hilton MD Unavailable Unavailable Axel Freeman Unavailable Unavailable NO, PCP Unavailable Unavailable Re-disclosure Warning The records that you are about to access may contain information from federally-assisted alcohol or drug abuse programs. If such information is present, then the following federally mandated warning applies: This information has been disclosed to you from records protected by federal confidentiality rules (42 CFR part 2). The federal rules prohibit you from making any further disclosure of this information unless further disclosure is expressly permitted by the written consent of the person to whom it pertains or as otherwise permitted by 42 CFR part 2. A general authorization for the release of medical or other information is NOT sufficient for this purpose. The Federal rules restrict any use of the information to criminally investigate or prosecute any alcohol or drug abuse patient.The records that you are about to access may contain highly sensitive health information, the redisclosure of which is protected by Article 27-F of the [facility] Public Health law. If you continue you may have access to information: Regarding HIV / AIDS; Provided by facilities licensed or operated by the [facility] Office of Mental Health; or Provided by the [facility] Office for People With Developmental Disabilities. If such information is present, then the following [facility] mandated warning applies: This information has been disclosed to you from confidential records which are protected by state law. State law prohibits you from making any further disclosure of this information without the specific written consent of the person to whom it pertains, or as otherwise permitted by law. Any unauthorized further disclosure in violation of state law may result in a fine or snf sentence or both. A general authorization for the release of medical or other information is NOT sufficient authorization for further disc losure. Allergies and Adverse Reactions Type Description Substance Reaction Status Data Source(s ) No Known Environmental Allergies No Known Environmental Al lergies [facility] No Known Food Allergies No Known Food Allergies [facility] Drug allergy LISINOPRIL LISINOPRIL [facility] Drug allergy Valsartan valsartan rash Active eCW1 ([facility]) lisinopril Lisinopril Lisinopril Rash Active eCW1 ([facility]) cold medication cold medication cold medication Rash Active eCW1 ([facility]) cold medication cold medication cold medication Rash Active eCW1 ([facility]) Encounters Encounter Providers Location Date Indications Data Source(s ) [place] [address] [address] 01/01/2021 12:00:00 AM EST eCW1 [facility] [place] [address] [address] 12/28/2020 12:00:00 AM EST eCW1 ([facility]) [place] [address] [address] 12/28/2020 12:00:00 AM EST eCW1 ([facility]) [place] [address] [address] 12/28/2020 12:00:00 AM EST eCW1 ([facility]) [place] [address] [address] 12/10/2020 12:00:00 AM EST eCW1 ([facility]) Outpatient Referrer: Charlie Freeman 2020 10:14:0 0 AM EST Malignant neoplasm of unspecified site of unspecified female breast [facility] Malignant neoplasm of unspecified site o f unspecified female breast Outpatient [address] [address] 12/07/2020 12:00:00 AM EST eCW1 ([facility]) [place] [address] [address] 12/03/2020 12:00:00 AM EST eCW1 ([facility]) [place] [address] [address] 12/03/2020 12:00:00 AM EST eCW1 ([facility]) [place] [address] [address] 11/30/2020 12:00:00 AM EST eCW1 ([facility]) [place] [address] [address] 11/30/2020 12:00:00 AM EST eCW1 ([facility]) [place] [address] [address] 11/27/2020 12:00:00 AM EST eCW1 ([facility]) [place] [address] [address] 11/26/2020 12:00:00 AM EST eCW1 ([facility]) [place] [address] [address] 11/11/2020 12:00:00 AM EST eCW1 ([facility]) Outpatient Attender: César Hilton MDConsultant: PCP NO 09/30/2020 08:15:00 AM EST - 09/30/2020 01:12:00 PM [facility] Patient discharged. Outpatient Attender: César Hilton MDConsultant: PCP NO 09/25/2020 12:43:57 PM EST [facility] [place] [address] [address] 09/07/2020 12:00:00 AM EDT eCW1 ([facility]) [place] [address] [address] 09/04/2020 12:00:00 AM EDT eCW1 ([facility]) [facility] [address] [address] 12/25/2019 12:00:00 AM EST eCW1 ([facility]) [facility] [address] [address] 12/09/2019 12:00:00 AM EST eCW1 ([facility]) [facility] [address] [place] [address] 12/09/2019 12:00:00 AM EST eCW1 ([facility]) [facility] [address] [address] 11/27/2019 12:00:00 AM EST eCW1 ([facility]) [facility] [address] [address] 11/27/2019 12:00:00 AM EST eCW1 ([facility]) Immunizations Vaccine Date Status Description Data Source(s) influenza, recombinant, quadrIvalent,injectable, prese rvative free 09/04/2020 02:54:00 PM EDT completed eCW1 (Replaced by [facility]) influenza, recombinant, quadrIvalent,injectable, prese rvative free 09/04/2020 02:54:00 PM EDT completed eCW1 (Replaced by [facility]) influenza, recombinant, quadrIvalent,injectable, prese rvative free 09/04/2020 02:54:00 PM EDT completed eCW1 (Replaced by [facility]) influenza, recombinant, quadrIvalent,injectable, prese rvative free 09/04/2020 02:54:00 PM EDT completed eCW1 (Replaced by [facility]) influenza, recombinant, quadrIvalent,injectable, prese rvative free 09/04/2020 02:54:00 PM EDT completed eCW1 (Replaced by [facility]) influenza, recombinant, quadrIvalent,injectable, prese rvative free 09/04/2020 02:54:00 PM EDT completed eCW1 (Replaced by [facility]) influenza, recombinant, quadrIvalent,injectable, prese rvative free 09/04/2020 02:54:00 PM EDT completed eCW1 (Replaced by [facility]) influenza, recombinant, quadrIvalent,injectable, prese rvative free 09/04/2020 02:54:00 PM EDT completed eCW1 (Replaced by [facility]) influenza, recombinant, quadrIvalent,injectable, prese rvative free 09/04/2020 02:54:00 PM EDT completed eCW1 (Replaced by [facility]) influenza, recombinant, quadrIvalent,injectable, prese rvative free 09/04/2020 02:54:00 PM EDT completed eCW1 (Replaced by [facility]) influenza, recombinant, quadrIvalent,injectable, prese rvative free 09/04/2020 02:54:00 PM EDT completed eCW1 (Replaced by [facility]) influenza, recombinant, quadrIvalent,injectable, prese rvative free 09/04/2020 02:54:00 PM EDT completed eCW1 (Replaced by [facility]) influenza, recombinant, quadrIvalent,injectable, prese rvative free 09/04/2020 02:54:00 PM EDT completed eCW1 (Replaced by [facility]) influenza, recombinant, quadrIvalent,injectable, prese rvative free 09/04/2020 02:54:00 PM EDT completed eCW1 (Replaced by [facility]) influenza, recombinant, quadrIvalent,injectable, prese rvative free 09/04/2020 02:54:00 PM EDT completed eCW1 (Replaced by [facility]) Medications Medication Brand Name Start Date Product Form Dose Route Admi nistrative Instructions Pharmacy Instructions Status Indications Reaction Description Data Source(s) Lidocaine 25 MG/ML / Prilocaine 25 MG/ML Topical Cream Lidocaine-Prilocaine 2.5- 2.5 % Lidocaine-Prilocaine 2.5-2.5 % 12/28/2020 12:00:00 AM EST active Lidocaine-Prilocaine 2.5-2.5 % e CW1 ([facility]) Lidocaine 25 MG/ML / Prilocaine 25 MG/ML Topical Cream Lidocaine-Prilocaine 2.5- 2.5 % Lidocaine-Prilocaine 2.5-2.5 % 12/28/2020 12:00:00 AM EST active Lidocaine-Prilocaine 2.5-2.5 % e CW1 ([facility]) 2.5-2.5 % 12/28/2020 12:00:00 AM EST cream 5 APPLY ENTIRE TUBE TO RIGHT NIPPLE 2 HOURS PRIOR TO COMING TO HOSPITAL FOR SURGERY COVER WITH PLASTIC APPLY ENTIRE TUBE TO RIGHT NIPPLE 2 HOURS PRIOR TO COMING TO HOSPITAL FOR SURGERY COVER WITH PLASTIC SOLD: 12/28/2020 [facility] Lidocaine 25 MG/ML / Prilocaine 25 MG/ML Topical Cream Lidocaine-Prilocaine 2.5- 2.5 % Lidocaine-Prilocaine 2.5-2.5 % 12/28/2020 12:00:00 AM EST active Lidocaine-Prilocaine 2.5-2.5 % e CW1 ([facility]) Lidocaine 25 MG/ML / Prilocaine 25 MG/ML Topical Cream Lidocaine-Prilocaine 2.5- 2.5 % Lidocaine-Prilocaine 2.5-2.5 % 12/28/2020 12:00:00 AM EST active Lidocaine-Prilocaine 2.5-2.5 % e CW1 ([facility]) Lidocaine 25 MG/ML / Prilocaine 25 MG/ML Topical Cream Lidocaine-Prilocaine 2.5- 2.5 % Lidocaine-Prilocaine 2.5-2.5 % 12/28/2020 12:00:00 AM EST active Lidocaine-Prilocaine 2.5-2.5 % e CW1 ([facility]) 500 mg 12/24/2020 12:00:00 AM EST capsule 30 TAKE ONE CAPSULE BY MOUTH THREE TIMES A DAY UNTIL GONE TAKE ONE CAPSULE BY MOUTH THREE TIMES A DAY UNTIL GONE SOLD: 12/25/2020 [facility] 20 mg 12/12/2020 12:00:00 AM EST capsule,delayed release (DR/EC) 90 TAKE ONE CAPSULE BY MOUTH EVERY DAY TAKE ONE CAPSULE BY MOUTH EVERY DAY SOLD: 12/18/2020 [facility] 1,250 mcg (50,000 unit) 12/04/2020 12:00:00 AM EST capsule 4 TAKE ONE CAPSULE BY MOUTH ONCE A WEEK, TAKE WITH MEAL TAKE ONE CAPSULE BY MOUTH ONCE A WEEK, TAKE WITH MEAL SOLD: 12/09/2020 [facility] 20 mg 11/16/2020 12:00:00 AM EST capsule,delayed release (DR/EC) 30 TAKE ONE CAPSULE BY MOUTH EVERY DAY TAKE ONE CAPSULE BY MOUTH EVERY DAY SOLD: 11/18/2020 [facility] 25 mg 10/21/2020 12:00:00 AM EST tablet 90 TAKE ONE TABLET BY MOUTH ONCE A DAY TAKE ONE TABLET BY MOUTH ONCE A DAY SOLD: 10/24/2020 [facility] atorvastatin 10 MG Oral Tablet ATORVASTATIN CALCIUM 09/05/2020 1 2:00:00 AM EDT tablet 90 TAKE ONE TABLET BY MOUTH ONCE A DAY TAKE ONE TABLET BY MOUTH ONCE A DAY SOLD: 09/10/2020 [facility] Metformin hydrochloride 500 MG Oral Tablet METFORMIN HCL 02/16/2020 12:00:00 AM EDT tablet 180 TAKE ONE TABLET BY MOUTH EVERY DAY WITH FOOD FOR 3 DAYS THEN TAKE TWO TABLETS BY MOUTH EVERY DAY WITH FOOD TAKE ONE TABLET BY MOUTH EVERY DAY WITH FOOD FOR 3 DAYS THEN TAKE TWO TABLETS BY MOUTH EVERY DAY WITH FOOD SOLD: 08/05/2020 [facility] 500 mg 02/16/2020 12:00:00 AM EDT tablet 180 TAKE ONE TABLET BY MOUTH EVERY DAY WITH FOOD FOR 3 DAYS THEN TAKE TWO TABLETS BY MOUTH EVERY DAY WITH FOOD TAKE ONE TABLET BY MOUTH EVERY DAY WITH FOOD FOR 3 DAYS THEN TAKE TWO TABLETS BY MOUTH EVERY DAY WITH FOOD SOLD: 02/18/2020 [facility] 1,250 mcg (50,000 unit) 02/15/2020 12:00:00 AM EDT capsule 12 TAKE 1 CAPSULE BY MOUTH ONCE A WEEK WITH FOOD TAKE 1 CAPSULE BY MOUTH ONCE A WEEK WITH FOOD SOLD: 08/05/2020 [facility] 25 mg 02/15/2020 12:00:00 AM EDT tablet 90 TAKE ONE TABLET BY MOUTH EVERY DAY TAKE ONE TABLET BY MOUTH EVERY DAY SOLD: 02/18/2020 [facility] 25 mg 02/15/2020 12:00:00 AM EDT tablet 90 TAKE ONE TABLET BY MOUTH EVERY DAY TAKE ONE TABLET BY MOUTH EVERY DAY SOLD: 08/05/2020 [facility] 1,250 mcg (50,000 unit) 02/15/2020 12:00:00 AM EDT capsule 12 TAKE 1 CAPSULE BY MOUTH ONCE A WEEK WITH FOOD TAKE 1 CAPSULE BY MOUTH ONCE A WEEK WITH FOOD SOLD: 02/18/2020 [facility] 25 mg 01/19/2020 12:00:00 AM EST tablet 30 TAKE ONE TABLET BY MOUTH EVERY DAY TAKE ONE TABLET BY MOUTH EVERY DAY SOLD: 01/19/2020 [facility] 20 mg 12/10/2019 12:00:00 AM EST capsule,delayed release (DR/EC) 30 TAKE ONE CAPSULE BY MOUTH EVERY DAY TAKE ONE CAPSULE BY MOUTH EVERY DAY SOLD: 08/05/2020 [facility] 20 mg 12/10/2019 12:00:00 AM EST capsule,delayed release (DR/EC) 30 TAKE ONE CAPSULE BY MOUTH EVERY DAY TAKE ONE CAPSULE BY MOUTH EVERY DAY SOLD: 09/10/2020 [facility] 20 mg 12/10/2019 12:00:00 AM EST capsule,delayed release (DR/EC) 30 TAKE ONE CAPSULE BY MOUTH EVERY DAY TAKE ONE CAPSULE BY MOUTH EVERY DAY SOLD: 12/18/2019 [facility] 20 mg 12/10/2019 12:00:00 AM EST capsule,delayed release (DR/EC) 30 TAKE ONE CAPSULE BY MOUTH EVERY DAY TAKE ONE CAPSULE BY MOUTH EVERY DAY SOLD: 01/19/2020 [facility] 20 mg 12/10/2019 12:00:00 AM EST capsule,delayed release (DR/EC) 30 TAKE ONE CAPSULE BY MOUTH EVERY DAY TAKE ONE CAPSULE BY MOUTH EVERY DAY SOLD: 05/06/2020 [facility] 20 mg 12/10/2019 12:00:00 AM EST capsule,delayed release (DR/EC) 30 TAKE ONE CAPSULE BY MOUTH EVERY DAY TAKE ONE CAPSULE BY MOUTH EVERY DAY SOLD: 02/18/2020 [facility] Mupirocin 0.02 MG/MG Topical Ointment Mupirocin 2 % Mupiroci n 2 % 12/09/2019 12:00:00 AM EST 1.0 {application} suspended Mupirocin 2 % eCW1 ([facility]) 2 % 12/09/2019 12:00:00 AM EST ointment 22 APPLY TO AFFECTED AREA(S) THREE TIMES A DAY FOR 10 DAYS APPLY TO AFFECTED AREA(S) THREE TIMES A DAY FOR 10 DAY S SOLD: 12/09/2019 [facility] Mupirocin 0.02 MG/MG Topical Ointment Mupirocin 2 % Mupiroci n 2 % 12/09/2019 12:00:00 AM EST 1.0 {application} suspended Mupirocin 2 % eCW1 ([facility]) Mupirocin 2 % UNK 12/09/2019 12:00:00 AM EST acti ve 1 application eCW1 ([facility]) Mupirocin 0.02 MG/MG Topical Ointment Mupirocin 2 % Mupiroci n 2 % 12/09/2019 12:00:00 AM EST 1.0 {application} suspended Mupirocin 2 % eCW1 ([facility]) Mupirocin 0.02 MG/MG Topical Ointment Mupirocin 2 % Mupiroci n 2 % 12/09/2019 12:00:00 AM EST 1.0 {application} suspended Mupirocin 2 % eCW1 ([facility]) Mupirocin 0.02 MG/MG Topical Ointment Mupirocin 2 % Mupiroci n 2 % 12/09/2019 12:00:00 AM EST 1.0 {application} suspended Mupirocin 2 % eCW1 ([facility]) Mupirocin 0.02 MG/MG Topical Ointment Mupirocin 2 % Mupiroci n 2 % 12/09/2019 12:00:00 AM EST 1.0 {application} suspended Mupirocin 2 % eCW1 ([facility]) 1,250 mcg (50,000 unit) 11/28/2019 12:00:00 AM EST capsule 4 TAKE ONE CAPSULE ONCE A WEEK WITH MAL TAKE ONE CAPSULE ONCE A WEEK WITH MAL SOLD: 01/19/2020 [facility] 500 mg 11/28/2019 12:00:00 AM EST tablet 60 TAKE ONE TABLET BY MOUTH DAILY FOR 3 DAYS, THEN TAKE 2 TABLETS BY MOUTH WITH FOOD DAILY TAKE ONE TABLET BY MOUTH DAILY FOR 3 DAYS, THEN TAKE 2 TABLETS BY MOUTH WITH FOOD DAILY SOLD: 12/24/2019 [facility] 1,250 mcg (50,000 unit) 11/28/2019 12:00:00 AM EST capsule 4 TAKE ONE CAPSULE ONCE A WEEK WITH MAL TAKE ONE CAPSULE ONCE A WEEK WITH MAL SOLD: 11/29/2019 [facility] 1,250 mcg (50,000 unit) 11/28/2019 12:00:00 AM EST capsule 4 TAKE ONE CAPSULE ONCE A WEEK WITH MAL TAKE ONE CAPSULE ONCE A WEEK WITH MAL SOLD: 12/24/2019 [facility] 25 mg 11/28/2019 12:00:00 AM EST tablet 30 TAKE ONE TABLET BY MOUTH EVERY DAY TAKE ONE TABLET BY MOUTH EVERY DAY SOLD: 11/29/2019 [facility] 25 mg 11/28/2019 12:00:00 AM EST tablet 30 TAKE ONE TABLET BY MOUTH EVERY DAY TAKE ONE TABLET BY MOUTH EVERY DAY SOLD: 12/24/2019 [facility] 500 mg 11/28/2019 12:00:00 AM EST tablet 60 TAKE ONE TABLET BY MOUTH DAILY FOR 3 DAYS, THEN TAKE 2 TABLETS BY MOUTH WITH FOOD DAILY TAKE ONE TABLET BY MOUTH DAILY FOR 3 DAYS, THEN TAKE 2 TABLETS BY MOUTH WITH FOOD DAILY SOLD: 11/29/2019 [facility] 500 mg 11/28/2019 12:00:00 AM EST tablet 60 TAKE ONE TABLET BY MOUTH DAILY FOR 3 DAYS, THEN TAKE 2 TABLETS BY MOUTH WITH FOOD DAILY TAKE ONE TABLET BY MOUTH DAILY FOR 3 DAYS, THEN TAKE 2 TABLETS BY MOUTH WITH FOOD DAILY SOLD: 01/19/2020 [facility] 80 mg 11/27/2019 12:00:00 AM EST tablet 30 TAKE ONE TABLET BY MOUTH EVERY DAY TAKE ONE TABLET BY MOUTH EVERY DAY SOLD: 11/29/2019 [facility] Ergocalciferol 63390 UNT Oral Capsule [Drisdol] Drisdo l 1.25 MG (00215 UT) Drisdol 1.25 MG (18889 UT) 11/27/2019 12:00:00 AM EST active 1 capsule eCW1 ([facility]) Drisdol 1.25 MG (76454 UT) UNK 11/27/2019 12:00:00 AM EST active 1 capsule eCW1 ([facility]) Valsartan 80 MG UNK 11/27/2019 12:00:00 AM EST ac tive 1 cap eCW1 ([facility]) Insurance Providers Payer name Policy type / Coverage type Policy ID Covered republican ID Covered republican's relationship to tineo Policy Tineo Plan Information [facility] [id number] SP [id number] [facility] [id number] SP [id number] [facility] [id number] SP [id number] [facility] I [id number] Self [id number] [facility] COMM[facility] PL[facility] XIX [id number] 18 [id number] [facility] [id number] SP [id number] [facility] [id number] SP [id number] [employer] [place] 302/307 [id number] SP [id number] [employer] [place] 302/307 [id number] SP [id number] [employer] [place] 302/307 [id number] SP [id number] [facility] [id number] [facility] [id number] SP [id number] [employer] [place] 302/307 [id number] SP [id number] [facility] [id number] SP [id number] [employer] [place] [id number] SP [id number] [employer] [place] PPO 302/307 [id number] SP [id number] Problems, Conditions, and Diagnoses Code Display Name Description Problem Type Effective Dates Data Source(s) K21.9 [id number] Gastroesophageal ref lux disease, unspecified whether esophagitis present Problem 01/01/2021 12:00:00 AM EST eCW1 ([facility]) E11.9 [id number] Type 2 diabetes raheem itus without complication, unspecified whether watermelon inspector insulin use Problem 12/07/2020 12:00:00 AM EST eCW 1 ([facility]) C50.911 [id number] Malignant neoplasm o f right female breast, unspecified estrogen receptor status, unspecified site of breast Problem 0 12/07/2020 12:00:00 AM EST eCW1 ([facility]) R92.8 [id number] Abnormal mammogram of right breast Proble m 11/26/2020 12:00:00 AM EST eCW1 ([facility]) H25.12 [id number] Age-related nuclear cataract, left eye Problem 09/04/2020 12:00:00 AM EDT eCW1 ([facility]) R94.5 [id number] Elevated LFTs Problem 11/27/2019 12:00:00 AM EST eCW1 ([facility]) R94.5 [id number] Elevated LFTs Problem 11/27/2019 12:00:00 AM EST eCW1 ([facility]) C50.919 Malignant neoplasm of unspecified site o f unspecified female breast Malignant neoplasm of unspecified site of unspecified female breast Diagnosis 2020 10:14:00 AM EST [facility] H268 Other specified cataract Other specified cataract Diag nosis 09/30/2020 08:15:00 AM EST [facility] Surgeries/Procedures Procedure Description Date Indications Data Source(s) ECG ROUTINE ECG W/LEAST 12 LDS W/I&R 01/01/2021 12:00: 00 AM EST eCW1 ([facility]) Immunization: Flublok Quadrivalent (18 years & older) 0.5mL IM (Influenza) 09/04/2020 12:00:00 AM EDT eCW1 ([facility]) Results ID Date Data Source [id number] 01/01/2021 12:00:00 AM EST eCW1 ([facility]) Name Value Range Interpretation Code Description Data Julisa rce(s) Supporting Document(s) Hemoglobin A1c/Hemoglobin.total in Blood 7.1 HEMOGLOBIN A1c eCW1 ([facility]) ID Date Data Source Comprehensive Metabolic Profile (CMP) 01/01/2021 12:00:00 AM EST eCW1 ([facility]) Name Value Range Interpretation Code Description Data Julisa rce(s) Supporting Document(s) 109 70-100 GLUCOSE, FASTING eCW1 ([facility]) 18 7-18 BLOOD UREA NITROGEN eCW1 ([facility]) 0.90 0.55-1.30 CREATININE FOR GFR eCW1 ([facility]) 141 136-145 SODIUM LEVEL eCW1 ([facility]) > 60.0 >45 GLOMERULAR FILTRATION RATE eCW 1 ([facility]) 100 98-107 CHLORIDE LEVEL eCW1 ([facility]) 4.3 3.5-5.1 POTASSIUM SERUM eCW1 ([facility]) 33 21-32 CARBON DIOXIDE LEVEL eCW1 ([facility]) 10.3 8.8-10.2 CALCIUM LEVEL eCW1 ([facility]) 81 12-78 ALT/SGPT eCW1 ([facility]placed by [facility]) 19 7-37 AST/SGOT eCW1 (Replaced by [facility]) 130 45-117 ALKALINE PHOSPHATASE eCW1 ([facility]) 0.3 0.2-1.0 BILIRUBIN,TOTAL eCW1 ([facility]) 4.5 3.2-5.2 ALBUMIN eCW1 (Replaced by [facility]) 8.1 6.4-8.2 TOTAL PROTEIN eCW1 ([facility]) 1.3 1.2-2.2 ALBUMIN/GLOBULIN RATIO eCW1 ([facility]) ID Date Data Source CBC with Differential 01/01/2021 12:00:00 AM EST eCW1 ([facility]) Name Value Range Interpretation Code Description Data Julisa rce(s) Supporting Document(s) 9.0 4.0-10.0 WHITE BLOOD COUNT eCW1 ([facility]) 4.93 4.00-5.40 RED BLOOD COUNT eCW1 ([facility]) 14.0 12.0-15.5 HEMOGLOBIN eCW1 ([facility]) 88.8 80.0-96.0 MEAN CORPUSCULAR VOLUME e CW1 ([facility]) 43.8 36.0-47.0 HEMATOCRIT eCW1 ([facility]) 13.9 11.5-14.5 RED CELL DISTRIBUTION WID TH eCW1 ([facility]) 28.4 27.0-33.0 MEAN CORPUSCULAR HEMOGLOB IN eCW1 ([facility]) 32.0 32.0-36.5 MEAN CORPUSCULAR HGB CONC eCW1 ([facility]) 63.4 36.0-66.0 NEUTROPHILS % eCW1 ([facility]) 295 150-450 PLATELET COUNT, AUTOMATED eCW1 ([facility]) 23.7 24.0-44.0 LYMPH % eCW1 ([facility]placed by [facility]) 0.8 0.0-1.0 BASO % eCW1 (Replaced by [facility]) 8.0 2.0-8.0 MONO % eCW1 (Replaced by [facility]) 3.8 0.0-3.0 EOS % eCW1 (Replaced by [facility]) 5.7 1.5-8.5 NEUTROPHILS # eCW1 ([facility]) 2.1 1.5-5.0 LYMPH # eCW1 (Replaced by [facility]) 0.7 0.0-0.8 MONO # eCW1 (Replaced by [facility]) 0.3 0.0-0.5 EOS # eCW1 (Replaced by [facility]) 0.1 0.0-0.2 BASO # eCW1 (Replaced by [facility]) ID Date Data Source NT-PRO BNP 01/01/2021 12:00:00 AM EST eCW1 ([facility]) Name Value Range Interpretation Code Description Data Julisa rce(s) Supporting Document(s) 57 <125 NT-PRO BNP eCW1 ([facility]) ID Date Data Source [id number] 12/31/2020 11:35:00 AM EST [facility] Name Value Range Interpretation Code Description Data Julisa rce(s) Supporting Document(s) SARS coronavirus 2 RNA Not Detected [facility] [place] This lab was ordered by [facility] and reported by [facility]. ID Date Data Source [facility]ST[facility] UNILATERAL MAMMO (Ultrasound if indica janis) 12/02/2020 12:00:00 AM EST eCW1 ([facility]) Name Value Range Interpretation Code Description Data Julisa rce(s) Supporting Document(s) [facility] DIAG[facility] UNILATERA L MAMMO (Ultrasound if indicated) eCW1 ([facility]) ID Date Data Source [id number] 10/19/2020 07:53:00 [place] [address] OPERATIVE SUMMARYNAME: SERGEY DE LA CRUZ DATE OF : 1960ATTENDING PHYS: César Hilton MD DATE: 09/30/20 MR#: [id number] OF PROCEDURE: 09/30/2020PREOPERATIVE DIAGNOSIS: Cataract, left eye.POSTOPERATIVE DIAGNOSIS: Cataract, left eyePROCEDURE: Femtosecond laser with phacoemulsification with intraocular lens implantationwith the help of ORA. Intraocular lens power chosen was AUOOTO power 16.5 diopter.SURGEON: César Hilton MD.ACCOUNTANT COST: None.COMPLICATIONS: None.INDICATION: Decreased vision interfering with daily activities.DETAILS OF PROCEDURE:Patient was brought to the laser room and was placed in the supine position. After informed consentwas signed, the laser inter face and suction was placed over the patient's eye. After adequate suctionwas achieved, multiple OCT images were then reviewed and the laser was activated.Capsulorhexis, lens fragmentation, primary, secondary and arcuate corneal incisions were thenmade according to plan. Following which, the suction was released and patient was sent to theoperating room. In the operating room, the eye was prepped and draped in a sterile fashion forophthalmic surgery, following which a lid speculum was placed. The temporal clear cornealincision and the side port incision were then opened. Viscoat was then injected into the anteriorchamber, followed by removal of the capsulorhexis and hydrodissection, which was very limited.Phacoemulsification was done in a [id number] method within the capsular bag, followedby the aspiration of the cortical material using the irrigation and aspiration cannula. Following this,Viscoat was placed in the capsular bag. Intraocular pressure was checked and was noted to beadequate. Multiple ORA calculations were then reviewed and taken and intraocular lens powerchosen. IOL was then introduced into the capsular bag. Excess Viscoelastic was aspirated. Thewound was hydrated and the lid speculum was removed. Postop instructions were given and thepatient was returned to the recovery room in stable condition. At the end of the case, intracameralantibiotics and subtenon steroid injections were given. [address] [place] [address] OPERATIVE SUMMARYNAME: SERGEY DE LA CRUZ DATE OF : 1960ATTENDING PHYS: César Hilton MD DATE: 09/30/20 MR#: [id number]: César Hilton MD 10/19/20 04:29DT: SSR 10/19/20 07:51DS: César Hilton MD 10/21/20 09:59 2 Name Value Range Interpretation Code Description Data Julisa rce(s) Supporting Document(s) ID Date Data Source [id number] 09/25/2020 05:59:00 PM EST [facility] Name Value Range Interpretation Code Description Data Julisa rce(s) Supporting Document(s) SARS-CoV-2 (COVID-19) [facility] This lab was ordered by [place] [facility] and reported by [facility]. ID Date Data Source TSH 11/26/2019 12:00:00 AM EST eCW1 ([facility]) Name Value Range Interpretation Code Description Data Julisa rce(s) Supporting Document(s) 1.190 0.358-3.740 THYROID STIMULATING HORM ONE eCW1 ([facility]) ID Date Data Source VITAMIN D 25-HYDROXY 11/26/2019 12:00:00 AM EST eCW1 ([facility]) Name Value Range Interpretation Code Description Data Julisa rce(s) Supporting Document(s) 21.0 30.0-100.0 TOTAL 25(OH) VITAMIN D eC W1 ([facility]) ID Date Data Source MAGNESIUM LEVEL 11/26/2019 12:00:00 AM EST eCW1 ([facility]) Name Value Range Interpretation Code Description Data Julisa rce(s) Supporting Document(s) 2.4 1.8-2.4 MAGNESIUM LEVEL eCW1 ([facility]) ID Date Data Source [id number] 11/26/2019 12:00:00 AM EST eCW1 ([facility]) Name Value Range Interpretation Code Description Data Julisa rce(s) Supporting Document(s) Microalbumin/Creatinine [Mass Ratio] in Urine 67.4 CREATININE, URINE eCW1 ([facility]) Microalbumin/Creatinine [Ratio] in Urine 75.8 0.0-30.0 LUIS/CREAT RATIO eCW1 ([facility]) Albumin/Creatinine [Mass Ratio] in Urine 51.1 MALB URINE SIEMENS eCW1 ([facility]) ID Date Data Source LIPID PANEL (CARDIAC RISK) 11/26/2019 12:00:00 AM EST eCW1 ( [facility]) Name Value Range Interpretation Code Description Data Julisa rce(s) Supporting Document(s) Cholesterol [Moles/volume] in Serum or Plasma 200 <200 CHOLESTEROL LEVEL eCW1 ([facility]) Triglyceride [Mass/volume] in Serum or Plasma by calculation 147 <150 TRIGLYCERIDES LEVEL eCW1 ([facility]) 139 NON-HDL-C eCW1 (Replaced by [facility]) Cholesterol in LDL [Mass/volume] in Serum or Plasma by calculation 110 <100 LDL CHOLESTEROL eCW1 ([facility]) 3.278 <5 CHOLESTEROL RISK RATIO eCW1 (Critical [facility] hospital) Cholesterol in HDL [Moles/volume] in Serum or Plasma 61 >40 HDL CHOLESTEROL eCW1 ([facility]) ID Date Data Source FREE T4 11/26/2019 12:00:00 AM EST eCW1 ([facility]) Name Value Range Interpretation Code Description Data Julisa rce(s) Supporting Document(s) 1.18 0.76-1.46 FREE T4 eCW1 (Replaced by [facility]) Procedure Social History Code Duration Value Status Description Data Source(s ) Smoking 01/01/2021 12:00:00 AM EST Never Smoker completed Never S moker eCW1 ([facility]) Smoking 12/07/2020 12:00:00 AM EST Never Smoker completed Never S moker eCW1 ([facility]) Smoking 12/07/2020 12:00:00 AM EST Never Smoker completed Never S moker eCW1 ([facility]) Smoking 12/07/2020 12:00:00 AM EST Never Smoker completed Never S moker eCW1 ([facility]) Smoking 12/07/2020 12:00:00 AM EST Never Smoker completed Never S moker eCW1 ([facility]) Smoking 12/07/2020 12:00:00 AM EST Never Smoker completed Never S moker eCW1 ([facility]) Smoking 12/07/2020 12:00:00 AM EST Never Smoker completed Never S moker eCW1 ([facility]) Smoking 12/07/2020 12:00:00 AM EST Never Smoker completed Never S moker eCW1 ([facility]) Smoking 12/07/2020 12:00:00 AM EST Never Smoker completed Never S moker eCW1 ([facility]) Smoking 11/30/2020 12:00:00 AM EST Never Smoker completed Never S moker eCW1 ([facility]) Smoking 09/04/2020 12:00:00 AM EDT Never Smoker completed Never S moker eCW1 ([facility]) Smoking 09/04/2020 12:00:00 AM EDT Never Smoker completed Never S moker eCW1 ([facility]) Smoking 09/04/2020 12:00:00 AM EDT Never Smoker completed Never S moker eCW1 ([facility]) Smoking 09/04/2020 12:00:00 AM EDT Never Smoker completed Never S moker eCW1 ([facility]) Smoking 09/04/2020 12:00:00 AM EDT Never Smoker completed Never S moker eCW1 ([facility]) Vital Signs ID Date Data Source UNK Name Value Range Interpretation Code Description Data Source(s) Diastolic blood pressure 90 mm[Hg] 90 mm[Hg] eCW1 ([facility]) Systolic blood pressure 142 mm[Hg] 142 mm[Hg] e CW1 ([facility]) Body temperature 97.7 [degF] 97.7 [degF] eCW1 ( [facility]) Respiratory rate 18 /min 18 /min eCW1 ([facility]) Heart rate 102 /min 102 /min eCW1 ([facility]) Body mass index (BMI) [Ratio] 30.89 kg/m2 30.89 kg/m2 W1 ([facility]) Body height 64 [in_i] 64 [in_i] eCW1 ([facility]) Body weight 180.0 [lb_av] 180.0 [lb_av] eCW1 ([facility]) Diastolic blood pressure 80 mm[Hg] 80 mm[Hg] eCW1 ([facility]) Systolic blood pressure 140 mm[Hg] 140 mm[Hg] e CW1 ([facility]) Body temperature 98.3 [degF] 98.3 [degF] eCW1 ( [facility]) Respiratory rate 20 /min 20 /min eCW1 ([facility]) Heart rate 90 /min 90 /min eCW1 ([facility]) Body mass index (BMI) [Ratio] 30.55 kg/m2 30.55 kg/m2 W1 ([facility]) Body height 64 [in_i] 64 [in_i] eCW1 ([facility]) Body weight 178 [lb_av] 178 [lb_av] eCW1 ([facility]) Heart rate 90 /min 90 /min eCW1 ([facility]) Body mass index (BMI) [Ratio] 30.91 kg/m2 30.91 kg/m2 W1 ([facility]) Body height 64 [in_i] 64 [in_i] eCW1 ([facility]) Body weight 81.69 kg 81.69 kg eCW1 ([facility]) Body weight 180.1 [lb_av] 180.1 [lb_av] eCW1 ([facility]) Diastolic blood pressure 78 mm[Hg] 78 mm[Hg] eCW1 ([facility]) Systolic blood pressure 142 mm[Hg] 142 mm[Hg] e CW1 ([facility]) Body temperature 98.1 [degF] 98.1 [degF] eCW1 ( [facility]) Respiratory rate 18 /min 18 /min eCW1 ([facility]) Diastolic blood pressure 82 mm[Hg] 82 mm[Hg] eCW1 ([facility]) Systolic blood pressure 142 mm[Hg] 142 mm[Hg] e CW1 ([facility]) Body temperature 97.8 [degF] 97.8 [degF] eCW1 ( [facility]) Respiratory rate 18 /min 18 /min eCW1 ([facility]) Heart rate 108 /min 108 /min eCW1 ([facility]) Body mass index (BMI) [Ratio] 30.72 kg/m2 30.72 kg/m2 eCW1 ([facility]) Body height 64 [in_i] 64 [in_i] eCW1 ([facility]) Body weight 179 [lb_av] 179 [lb_av] eCW1 ([facility]) Diastolic blood pressure 84 mm[Hg] 84 mm[Hg] eCW1 ([facility]) Systolic blood pressure 128 mm[Hg] 128 mm[Hg] e CW1 ([facility]) Body temperature 97.1 [degF] 97.1 [degF] eCW1 ( [facility]) Respiratory rate 18 /min 18 /min eCW1 ([facility]) Heart rate 108 /min 108 /min eCW1 ([facility]) Body mass index (BMI) [Ratio] 29.69 kg/m2 29.69 kg/m2 eCW1 ([facility]) Body height 64 [in_us] 64 [in_us] eCW1 ([facility]) Body weight Measured 173.0 [lb_av] 173.0 [lb_av ] eCW1 ([facility]) Diastolic blood pressure 100 mm[Hg] 100 mm[Hg] eCW1 ([facility]) Systolic blood pressure 152 mm[Hg] 152 mm[Hg] e CW1 ([facility]) Body temperature 97.8 [degF] 97.8 [degF] eCW1 ( [facility]) Respiratory rate 18 /min 18 /min eCW1 ([facility]) Heart rate 108 /min 108 /min eCW1 ([facility]) Body mass index (BMI) [Ratio] 29.86 kg/m2 29.86 kg/m2 eCW1 ([facility]) Body height 64 [in_us] 64 [in_us] eCW1 ([facility]) Body weight Measured 174.0 [lb_av] 174.0 [lb_av ] eCW1 ([facility]) ID Date Data Source [id number] 10/21/2020 10:01:42 AM [facility] Name Value Range Interpretation Code Description Data Source(s) WEIGHT RECORDED 179.00 pounds 179.00 pounds [facility] Height 64 Inches 064 Inches [facility] Patient Treatment Plan of Care Planned Activity Planned Date Details Description Data Source (s) Lidocaine 25 MG/ML / Prilocaine 25 MG/ML Topical Cream 12/28/2020 12:00:00 AM EST eCW1 (Replaced by [facility]) Lidocaine 25 MG/ML / Prilocaine 25 MG/ML Topical Cream 12/28/2020 12:00:00 AM EST eCW1 (Replaced by [facility]) Lidocaine 25 MG/ML / Prilocaine 25 MG/ML Topical Cream 12/28/2020 12:00:00 AM EST eCW1 (Replaced by [facility]) Lidocaine 25 MG/ML / Prilocaine 25 MG/ML Topical Cream 12/28/2020 12:00:00 AM EST eCW1 (Replaced by [facility]) Mupirocin 2 % 12/09/2019 12:00:00 AM EST eCW1 ([facility]) Valsartan 80 MG 11/27/2019 12:00:00 AM EST eCW1 ([facility]) Ergocalciferol 98770 UNT Oral Capsule [Drisdol] 11/27/2019 12:00:00 AM EST eCW1 ([facility])
[2021-01-05] MEDS ORDERED: ROCURONIUM BROMIDE 50 MG/5 ML VIAL As Ordered ONE (10:06)
[2021-01-05] MEDS ORDERED: GLYCOPYRROLATE INJ 0.2 MG/ML 2 ML VIAL As Ordered ONE (10:06)
[2021-01-05] MEDS ORDERED: SUCCINYLCHOLINE 100 MG/5 ML SYRINGE (J0330) As Ordered ONE (10:06)
[2021-01-05] MEDS ORDERED: KETOROLAC 60MG 2ML VIAL As Ordered ONE (10:06)
[2021-01-05] MEDS ORDERED: fentaNYL 100 MCG/2 ML INJECTION (J3010) As Ordered ONE (10:06)
[2021-01-05] MEDS ORDERED: LIDOCAINE 2% 100MG/5ML SDV (FOR ANES.) As Ordered ONE (10:06)
[2021-01-05] MEDS ORDERED: MIDAZOLAM INJ 2MG/2ML VIAL (J2250 PER 1MG) As Ordered ONE (10:06)
[2021-01-05] MEDS ORDERED: PHENYLephrine 500MCG 5ML (100MCG/ML) SYRINGE As Ordered ONE (10:06)
[2021-01-05] MEDS ORDERED: dexameTHASONE 4 MG/ML 1ML VIAL (J1100 PER 1MG) As Ordered ONE (10:06)
[2021-01-05] MEDS ORDERED: ONDANSETRON 4MG/2ML VIAL As Ordered ONE ×2 (10:06→12:12)
[2021-01-05] MEDS ORDERED: propofoL 200 MG/20 ML VIAL As Ordered ONE (10:06)
[2021-01-05] MEDS ORDERED: HYDROmorphone HCL 2 MG/ML 1ML VIAL (J1170) As Ordered ONE (10:10)
[2021-01-05] MEDS ORDERED: ACETAMINOPHEN 1000MG 100ML IV BTL (OFIRMEV) (J0131 PER 10MG) As Ordered ONE (10:14)
[2021-01-05] MEDS ORDERED: PHENYLEPHRINE 10MG/ML 1ML VIAL (J2370 PER 1) As Ordered ONE (10:34)
[2021-01-05] MEDS ORDERED: SUGAMMADEX SODIUM 500 MG/5 ML VIAL (BRIDION) As Ordered ONE (11:28)
[2021-01-05] MEDS ORDERED: METOCLOPRAMIDE INJ 10MG/2ML VIAL (J2765 PER 1) As Ordered ONE (12:13)
--- NOTE | 2021-01-05 12:36 | REP ---
INDICATION: RIGHT BREAST LUMPECTOMY. COMPARISON: Comparison sonography 26 November 2020.. TECHNIQUE: Sonographic guidance. FINDINGS: Sonographic guidance is provided to Dr. Strange performed needle localization procedure wire placement. IMPRESSION: Sonographic guidance right breast. <Electronically signed by Massimo Villalba > 01/05/21 1233
--- NOTE | 2021-01-05 13:02 | REP ---
INDICATION: BREAST CA. COMPARISON: None. TECHNIQUE/RADIOTRACER AND DOSE: This procedure was performed by Norma Champion [facility], under the direct supervision of Dr. Villalba. Images were reviewed with Dr. Villalba prior to dictation. The risks and benefits of the procedure were explained to the patient and informed consent was obtained both orally and written. Directly prior to the start of the procedure, a formal timeout was done in the exam room. Using topical anesthetic and sterile technique 1.025 mCi of filtered Technetium-99m sulfur colloid was injected subdermally in 8 fractionated periareolar injections. FINDINGS: Images obtained 1 hour after injection show tracey uptake in the right axilla. IMPRESSION: There is tracey uptake in the right axilla. <Electronically signed by Norma Champion > 01/05/21 1014 <Electronically signed by Massimo Villalba > 01/05/21 [id number]
[2021-01-05] MEDS ORDERED: ROXI1TAB2 PO (13:44)
[2021-01-05] MEDS ORDERED: LR 1,000 ML IV SCH (13:45)
[2021-01-05] MEDS ORDERED: ONDANSETRON 4MG/2ML VIAL IV PRN (13:45)
[2021-01-05] MEDS ORDERED: fentaNYL 100 MCG/2 ML INJECTION (J3010) IV PRN (13:45)
[2021-01-05] MEDS: oxyCODONE 5MG TAB PO PRN ×2 (14:02→14:35)
[2021-01-05 16:04] VITALS: BP 115/75
--- NOTE | 2021-01-05 17:39 | ROOPDOC ---
[facility] Report Of Operation Report of Operation DATE OF PROCEDURE: 01/05/21 PREPROCEDURE DIAGNOSES: right breast cancer POSTPROCEDURE DIAGNOSES: same PROCEDURE: Right breast SURGEON: Giuliano Dudley ANESTHESIA: general ESTIMATED BLOOD LOSS: Approximately 25 mL. COMPLICATIONS: none REMARKS: wire clip and spiculated mass with calcs seen in specimen DESCRIPTION OF PROCEDURE: INDICATIONS: Ms. Cruz is a 60-year-old woman who was found to have a suspicious right breast lesion on screening mammogram. This was evaluated with US and sonographic correlate was found at 9:00 in the right breast. US guided biopsy of came back as ILC, ER 90%, MO 10%, HER-2 negative, grade 2. She opted for breast conservative surgery with sentinel lymph node biopsy on the right side. She was medically cleared for surgery by her primary care doctor. Risks and possible complications of surgical procedure including bleeding, infection and injury to surrounding structures were explained to the patient and she wished to proceed. Consent was signed. My initials were placed on the operative site. Subcutaneous injection of 5000 units of heparin was done in Preop. The injection of radioactive tracer was done in radiology department pr eoperatively. Lymphoscintigraphy imaging was reviewed in preop. DETAILS: Patient was taken to the operating room and placed on the operating room table. A sign in was called stating patients name, date of and the procedure to be done. Preoperative antibiotics were infused. Smooth induction of general anesthesia was done. Patients hands were extended on arm rests. Care was taken not to over extend the arms. Pillow was placed under the knees and a foam was placed under the heels. Sequential compression devices were placed and assured to function correctly. Procedure was started with right breast intraop wire localization. Appropriate time out was done and patients name, date of , and the procedure to be done were confirmed. Right breast was cleaned by me. Intraoperative ultrasound was used to confirm location of the Hydromark clip. Location of the clip was marked on the skin as well. 21 G Kopans Breast Lesion Localization Needle was used to place 25 cm wire through the lesion. The wire was placed through the clip and the end of the wire was passed a centimeter deep. The images were captured confirming adequate placement of the localizing wire. Forwarder Operator assisted with the wire placement. Next, patients right breast and axilla were prepped and draped in the usual fashion. Care was taken not to displace the wire. Appropriate time out was done again prior second part of the procedure. Patients name, date of , and the procedure to be done were confirmed. Procedure was started with sentinel lymph node biopsy. Neoprobe was used to locate area of maximum intensity of the signal. Local anesthetic using 1% lidocaine and 0.25 % Marcaine 50/50 mix was injected. An incision was made with scalpel number 15 at the inferior aspect of axillary hair line in the right axilla where the maximum signal was identified. The sharp and blunt dissection was continued through the subcutaneous adipose tissue. Clavipectoral fascia was opened. Neoprobe was used to guide the dissection. First sentinel lymph node was identified and excised. The ex-vivo 10 second count was 8[address]. This was located in the deep axilla level 1. Second sentinel lymph node was identified and excised as well. The ex-vivo 10 second count was 2755. This was located medially and deep to the fist node and it was at level 2. The specimens were labeled with patients name and sent to pathology. No additional lymph nodes with high radioactive signal were identified. The 10 second count of the background was 18. Adequate hemostasis was assured. Additional local anesthetic was injected into surrounding tissues. Wound was irrigated. Clavipectoral fascia was closed with 3-0 Vicryl interrupted suture. Dermal layer was closed at the end of the case with 3-0 Monocryl and skin was closed with 4-0 Monocryl. Surgical glue was applied to the incision at the end of the procedure. Next, our attention was turned toward the right breast. Local anesthetic using 1% lidocaine and 0.25 % Marcaine 50/50 mix was injected at the site of planned periareolar incision. The incision was made with the scalpel. Subcutaneous skin flaps were raised and the guide wire was carefully pulled into the wound. Dissection was carries along the wire until the previously marked on the skin area of target lesion location was encountered. At this point, wider excision of the tissue surrounding the wire was done. The Hydromark clip was identified in the tissue with intraoperative hockey stick ultrasound probe. The end of the wire was identified with palpation. Anterior aspect of the specimen was marked for orientation with long Silk stitch and the superior aspect was marked with short Silk stitch. The lumpectomy specimen was carefully removed from the breast keeping its proper orientation and moved to the back table where margins were marked with the surgical inking kit following the standard colors recommendations. Specimen was then placed on the grid and placed in [employer] [facility]. The image revealed the wire, the Hydromark and the spiculated mass with numerous calcifications in the specimen. The specimen was labeled with patients name and right lumpectomy and sent to pathology. At this time radiology department was called to aid with evaluation of excised specimen. No additional excision was recommended. Next, five additional margins were taken: deep, inferior, superior, medial, and lateral. Anterior margin was not taken as the initial dissection was done in subcutaneous plane. Deep margin was taken down to the muscle. All new margins, defined as margin farthest away from lumpectomy cavity, were marked with black ink. There was concern that a lateral margin may have gotten twisted during dissection and the * was placed next to that margin. Medial true margin was marked with the stitch at true new margin as the ink unfortunately bleed into the other side of the specimen. Each margin was sent as a separate specimen with appropriate labeling. Wound was thoroughly irrigated. Adequate hemostasis was assured. Additional local anesthetic was injected into surrounding tissues. Clips were placed to fatimah the cavity. Surrounding tissue was mobilized to allow filling of the defect created by the lumpectomy excision. The defect was approximated with 2-0 Vicryl. The dermis was closed with 3-0 Monocryl and skin was closed with 4-0 Monocryl. Surgical glue was placed over the incision. Patient emerged from the anesthesia without any problems. Fluffs were placed over the operative site and patients chest was wrapped snuggly in the LIBIA wrap. Sponge and instrument counts were done and were correct. Patient tolerated procedure well and was taken to recovery unit in stable condition. GIULIANO JONES DO Jan 05, 2021 17:39
--- NOTE | 2021-01-06 16:29 | REP ---
INDICATION: BREAST EXAM. Right breast mass. COMPARISON: Comparison mammography 02 December 2020 and 11 November 2020.. TECHNIQUE: Three specimen radiographs and accompanying 4 grafts. FINDINGS: Specimen radiography demonstrates the spiculated mass and a needle biopsy marker clip centrally located in the specimen. There is vascular calcification from an adjacent artery. IMPRESSION: The target mass is centrally located in the specimen along the course of the a [place] needle wire localization device. Marker clip is present as well. <Electronically signed by Massimo Villalba > 01/06/21 [id number]
== END 2021-01-05 16:15 | disposition home or self-care (01) ==
LOC: M SDC 06:42
PROVIDERS: ATTEND Surgery
DX: C50.911 Malignant neoplasm of unspecified site of right female breast (principal); C77.3 Secondary and unspecified malignant neoplasm of axilla and upper limb lymph nodes; Z17.0 Estrogen receptor positive status [ER+]; E11.9 Type 2 diabetes mellitus without complications; I10 Essential (primary) hypertension; E78.5 Hyperlipidemia, unspecified; K21.9 Gastro-esophageal reflux disease without esophagitis; Z79.84 Long term (current) use of oral hypoglycemic drugs; Z79.82 Long term (current) use of aspirin; Z79.899 Other long term (current) drug therapy; F41.9 Anxiety disorder, unspecified
CPT/HCPCS: 19125; 36415; 38525; 78195; 86850; 86900; 86901; 88305; 88307; 88341; 88342; A9541; J0131; J0330; J0690; J1100; J1170; J1644; J2250; J2370; J2405; J2765; J3010; Q9968

== ENCOUNTER → 2021-01-28 | Outpatient (CLI) | payer OTHER ==
[~2021-01-28] MED LIST changes: +ANAS1TAB2 PO; -HEPARIN SOD (PORCINE) 5000UNITS/ML 1ML VIAL/SYRINGE SQ ONE; -LR 1,000 ML IV ONE; +ROXI1TAB2 PO; -ceFAZolin SOD 2 GM in IV 1 EA IV ONE
--- NOTE | 2021-01-28 15:00 | RADONC.CN ---
Radiation Oncology Hx/Consult Radiation Oncology Consult Date of Service: Jan 28, 2021 Pt Identifier Dary Cruz is a 60 year old female with right breast cancer pT2N1(mi)M0 ER/OR+ HER2- ILC Grade 2. She is s/p lumpectomy and SLNB on 01/05/[address] Strange. She is seen for consideration of adjuvant RT. Diagnosis/Treatment History Oncologic History 11/11/20 Mammogram showing 2.5 cm abnormality in the lower outer right breast. 11/26/19 Biopsy showing ILC ER/OR+ HER2- 12/25/20 MRI without regional disease 01/05/21 Lumpectomy with SLNB (Alie) pT2N1(mi) 1/2 nodes+ ILC margins negative She has seen Dr. Junior who plans for AI after RT Breast history: 1st @ 18 Menses @ 11 Menopause 51 Tubal ligation @ 19 No OCP No HRT Interval History Feels well. No impaired ROM or swelling in the RUE. She has some tenderness at the surgical site in the R LOQ this is improving steadily. She does note unpleasant axillary odor on the right, which is new, but no drainage or concerns about the incision. Appetite good weight stable. Past Medical History: DMII GERD HTN Low back pain Past Surgical History: As above Family History: Sister breast cancer Sister colon cancer Aunt ovarian cancer Social History: Never smoker Never drinker Allergies / Meds Allergies: Coded Allergies: lisinopril (Verified Allergy, Unknown, 12/31/20) valsartan (Verified Allergy, Unknown, 12/31/20) Home Meds Active Scripts Anastrozole (Anastrozole) 1 Mg Tablet, 1 TAB PO DAILY for breast cancer MDD 1 mg for 30 Days, #30 TAB 0 Refills Prov:JUAREZ JUNIOR MD 01/28/21 Reported Medications Aspirin (Aspirin EC) 81 Mg Tablet., 81 MG PO DAILY 12/31/20 Atorvastatin Calcium (Atorvastatin Calcium) 10 Mg Tablet, 10 MG PO DAILY, TAB 12/31/20 Metformin HCl (Metformin HCl) 500 Mg Tablet, 1000 MG PO DAILY, TAB 12/31/20 [place]-3/Dha/Epa/Fish Oil ([place]-3 Fish Oil 1,000 mg Sfgl) 1,000 Mg Capsule, 2 CAP PO DAILY, CAP 12/31/20 Hydrochlorothiazide (Hydrochlorothiazide) 25 Mg Tablet, 1 TAB PO DAILY 12/31/20 Ergocalciferol (Vitamin D2) (Vitamin D2) 50,000 Units Cap, 1 CAP PO QWEEK 12/31/20 Omeprazole (Omeprazole) 20 Mg Capsule.dr, 1 CAP PO DAILY 12/31/20 Discontinued Reported Medications Amoxicillin (Amoxicillin) 500 Mg Capsule, 1 CAP PO TID 12/31/20 Discontinued Scripts Oxycodone HCl (Roxicodone) 5 Mg Tablet, 5 MG PO Q6HP PRN for pain MDD 4 Tablet(s) for 3 Days, #10 TAB Prov:GIULIANO STRANGE DO 01/05/21 Review of Systems Constitutional: Denies: Chills, Fever, Night Sweats Eyes: Denies: Pain, Vision change HEENT: Denies: Head Aches, Dysphagia, Sore Throat Skin: Denies: Rash, Lesions, Bruising Pulmonary: Denies: Dyspnea, Cough Cardiovascular: Denies: Chest Pain, Palpitations, Edema Breast: Reports: Breast Pain or Tenderness; Denies: New Breast Lumps / Masses, Nipple Retraction, Breast Skin Changes Gastrointestinal: Denies: Nausea, Vomiting, Abdominal Pain, Diarrhea Genitourinary: Denies: Dysuria, Frequency, Incontinence Hematologic: Denies: Bruising, Petecchia, Enlarged Lymph Nodes Musculoskeletal: Denies: Neck pain, Back pain Neurological: Denies: Weakness, Numbness, Incoordination Psych: Reports: Mood Normal; Denies: Memory Issues, Thoughts of Self Harm Vital Signs Ht 64" Wt 181 lbs BMI 31 T 98 P 99 RR 18 BP 164/99 O2 99% Pain 0 Fatigue 0 General Exam: Positive: Alert, Cooperative, No Acute Distress Eye Exam: Positive: PERRLA, EOMI ENT EXAM: Positive: Mucous membr. moist/pink, Pharynx Normal Neck Exam: Negative: Thyromegaly, Lymphadenopathy Chest Exam: Positive: Normal air movement; Negative: Rales, Rhonchi, Wheezing Heart Exam: Positive: Rate Normal, Regular Rhythm Breast Exam: Positive: Symmetric Bilaterally, Other Breast Findings (There is a moderate sized palpable seroma in the R LOQ which is mildly tender to palpation. There is a well healed incision in the right inferior axilla, as well as the periareolar incision on the right. ); Negative: Lumps or Masses, Nipple Retraction, Nipple Discharge, Skin Changes Extremity Exam: Negative: Edema, Tenderness Skin Exam: Positive: Nl turgor and temperature; Negative: Rash Neuro Exam: Positive: Normal Gait, Normal Speech, Cranial Nerves 3-12 NL Psych Exam: Positive: Mental status NL, Mood NL, Memory Intact Diagnostic and Laboratory Diagnostic Review Radiologic images, relevant labs and pathology reports were personally reviewed and discussed with Ms. Cruz. Assessment and Plan Impression Ms. Cruz is a 60 year old female with a history of right breast cancer pT2N1(mi)M0 ER/OR+ HER2- ILC Grade 2. She is s/p lumpectomy and SLNB on 01/05/[address] Strange. She is seen for consideration of adjuvant RT. Stage Right lower outer breast cancer pT2N1(mi)M0 ER/OR+ HER2- Grade 2 ILC stage IB Performance Status ECOG 0 Plan We had an extensive discussion with Ms. Cruz regarding the diagnosis at hand and available therapeutic options. She is doing well and has healed well post-operatively. Based on her pathology she is appropriate for whole breast radiation + tumor bed boost. I recommend 40 Gy in 15 fractions to the right whole breast and an additional 10 Gy in 5 fractions to the tumor bed. I think she would be best served by supine treatment as her anatomy does not seem favorable for prone treatment. She meets Z011 criteria and so I will not target the axilla deliberately, even though she had a micrometastasis. We discussed the logistics of receiving radiation therapy in detail including the need for a 1-time planning session. We reviewed the side effects of treatment including fatigue, skin reaction and fibrosis. After discussing the risks, benefits and alternatives to radiation therapy, Ms. Cruz was amenable to pursuing radiotherapy. All questions were answered to the patient's satisfaction. We instructed the patient that if there were any questions,concerns or changes in clinical status in the interim to contact us. Recommendations Right WBI 40 Gy in 15 fractions + 10 Gy in 5 fraction tumor bed boost Simulation in the coming week AI to begin after RT per Dr. Junior Billing Statement Total time of [33] minutes was spent preparing for the visit [2], obtaining HPI [3], examining the patient [4], reviewing diagnostic tests [3], discussing management options [11], coordinating care [2], and writing this note [8]. RORY HAYS MD Jan 28, 2021 15:00
== END ==
LOC: M ONCR 12:39
PROVIDERS: ATTEND General Practice
DX: C50.911 Malignant neoplasm of unspecified site of right female breast (principal)

== ENCOUNTER → 2021-02-15 | Outpatient (CLI) | payer OTHER ==
--- NOTE | 2021-02-15 12:31 | DEXAMM ---
INDICATION: BREAST CA/ON ARIMATASE INHIB. COMPARISON: None. TECHNIQUE: Bone density was measured using dual-energy x-ray absorptionmetry (DEXA). FINDINGS: AP SPINE L1-L4 BMD 1.187 g/cm2 Young Adult T-Score -0.1 Age Matched Z-Score 1.2. LT FEMUR, TOTAL BMD 1.007 g/cm2 Young Adult T-Score 0.0 Age Matched Z-Score 1.0. LT NECK BMD 0.941 g/cm2 Young Adult T-Score -0.7 Age Matched Z-Score 0.6. RT FEMUR, TOTAL BMD 0.980 g/cm2 Young Adult T-Score -0.2 Age Matched Z-Score 0.8. RT NECK BMD 0.886 g/cm2 Young Adult T-Score -1.1 Age Matched Z-Score 0.2. IMPRESSION: There is normal bone density of the spine. There is normal bone density of the left hip. There is low bone density of the right hip. FOLLOW-UP: Recommendation for the next bone density exam: 2 years. <Electronically signed by Massimo Villalba > 02/15/21 [id number]
== END ==
LOC: M WHC 10:52
PROVIDERS: ATTEND Specialist
DX: Z79.811 Long term (current) use of aromatase inhibitors (principal); C50.919 Malignant neoplasm of unspecified site of unspecified female breast

== ENCOUNTER → 2021-02-17 | Outpatient (RCR) | payer OTHER | LOC: M ONCR 02-02 13:38 | PROVIDERS: ATTEND General Practice | DX: C50.511 Malignant neoplasm of lower-outer quadrant of right female breast (principal) ==

== ENCOUNTER → 2021-03-09 | Outpatient (CLI) | payer OTHER ==
--- NOTE | 2021-03-09 14:30 | REP ---
INDICATION: Q83.9 LT BREAST SUBAREOLAR AREA DUE TO NIPPLE RETRACTION. Nipple anomaly. It intermittent and possibly positional history of nipple inversion on the left. COMPARISON: Comparison mammography November 11 2020.. TECHNIQUE: Whole breast left-sided sonography is performed. FINDINGS: Mildly heterogeneous background echotexture is seen. There are 1 or 2 retroareolar breast ducts measuring up to 3 mm in diameter. There are 2 cysts in the retroareolar region on the left. The largest of these measures 1.0 x 0.3 x 0.8 cm. There is a septated cyst measuring 0.7 x 0.3 x 0.6 cm. No sonographically suspicious finding. IMPRESSION: BI-RADS category 2 benign findings. <Electronically signed by Massimo Villalba > 03/09/21 [id number]
== END ==
LOC: M WHC 12:15
PROVIDERS: ATTEND Surgery
DX: Q83.9 Congenital malformation of breast, unspecified (principal); N60.12 Diffuse cystic mastopathy of left breast

== ENCOUNTER 2021-03-10 10:03 | Outpatient (RCR) | payer OTHER | END 2021-03-19 | LOC: M ONCR 10:03 | PROVIDERS: ATTEND General Practice | DX: C50.511 Malignant neoplasm of lower-outer quadrant of right female breast (principal) ==

== ENCOUNTER → 2021-05-18 | Outpatient (CLI) | payer OTHER ==
[~2021-05-18] MED LIST changes: +AUGM875T28 PO; +ERGO500029 PO; +OCUVTAB4 PO; +POTA1TAB14 PO; -VITA50005 PO; +prevagen PO
--- NOTE | 2021-05-18 15:21 | REP ---
INDICATION: NOCULE CENTER OF NECK ? LYMPHNODE VS THYROID NODUL. COMPARISON: None. TECHNIQUE: Bilateral thyroid ultrasound FINDINGS: The right lobe of the thyroid gland measures 4.5 x 1.8 x 1.9 cm and the left lobe measures 4.1 x 1.8 x 1.8 cm. The isthmus measures 2 mm. The thyroid parenchymal echo pattern is markedly heterogenous and nodular with numerous complex and solid nodules ranging in size from 1-2 mm to just over 1-1/2 cm. The largest nodule on the right is in the midpole region, is complex, and measures 1 cm. The largest nodule on the left is in the medial lower pole region, is complex, and measures 1.6 cm. Seen outside the thyroid gland within the neck musculature there is a hypoechoic lesion in the left neck soft tissues which measures 1.9 x 1 by 1.7 cm. IMPRESSION: Markedly heterogenous nodular thyroid gland as described above. Additionally, there is a left-sided neck mass of uncertain etiology. For this additional nodule contrast-enhanced neck CT is recommended. <Electronically signed by Keenan Salazar > 05/18/21 [id number]
== END ==
LOC: M RAD 13:25
PROVIDERS: ATTEND Internal Medicine Medical Oncology
DX: R22.1 Localized swelling, mass and lump, neck (principal); E04.2 Nontoxic multinodular goiter

== ENCOUNTER → 2021-05-20 | Outpatient (CLI) | payer OTHER ==
[~2021-05-20] MED LIST changes: +ISOVUE-370 76% 100ML VIAL As Ordered ONE
--- NOTE | 2021-05-20 11:08 | REPVR ---
PROCEDURE INFORMATION: Exam: CT Neck With Contrast Exam date and time: 05/20/2021 10:43 AM Age: 60 years old Clinical indication: Condition or disease; Other: Mass on left side of neck, bb placed; Additional info: New lt neck mass, breast CA TECHNIQUE: Imaging protocol: Computed tomography images of the neck with contrast. Radiation optimization: All CT scans at this facility use at least one of these dose optimization techniques: automated exposure control; mA and/or kV adjustment per patient size (includes targeted exams where dose is matched to clinical indication); or iterative reconstruction. Contrast material: ISOVUE 370; Contrast volume: 75 ml; Contrast route: INTRAVENOUS (IV); COMPARISON: Thyroid, ST head+neck US 05/18/2021 2:29 PM FINDINGS: Nasopharynx: Unremarkable. Oropharynx: Unremarkable. No significant tonsillar enlargement. Hypopharynx: Unremarkable. Larynx: Unremarkable. Normal epiglottis. Retropharyngeal space: Unremarkable. Submandibular/Parotid glands: Normal. Glands are normal in size. Thyroid: Benign-appearing calcification in the right lobe of the thyroid gland measuring 8.2 mm. Small subcentimeter nodular densities in bilateral lobes of the thyroid gland. Lymph nodes: 5.7 x 4.3 mm nodule in the left anterior neck at the BB placement likely representing small lymph node. This is not pathologically enlarged by CT criteria, if clinically concerned secondary to breast cancer, further evaluation with PET scan is recommended. Left supraclavicular lymph node with lobulated margins measuring 11.4 x 11.5 mm (series 201, image 64). Few other subcentimeter cervical chain lymph nodes are seen. These are not pathologically enlarged by CT criteria. Trachea: Visualized trachea is unremarkable. Lungs: Visualized lungs are clear. Bones/joints: Degenerative changes of the spine. No lytic or blastic lesion is seen. Soft tissues: Unremarkable. No significant soft tissue swelling. IMPRESSION: Benign-appearing calcification in the right lobe of the thyroid gland measuring 8.2 mm. Small subcentimeter nodular densities in bilateral lobes of the thyroid gland. 5.7 x 4.3 mm nodule in the left anterior neck at the BB placement likely representing small lymph node. Left supraclavicular lymph node with lobulated margins measuring 11.4 x 11.5 mm (series 201, image 64). Few other subcentimeter cervical chain lymph nodes are seen. These are not pathologically enlarged by CT criteria. If clinically concerned for metastatic disease due to patient's history of breast cancer, further evaluation with PET scan is recommended. Electronically signed by: Chikis Richards On 05/20/2021 11:07:55 AM
== END ==
LOC: M RAD 10:12
PROVIDERS: ATTEND Internal Medicine Medical Oncology
DX: R22.1 Localized swelling, mass and lump, neck (principal); C50.911 Malignant neoplasm of unspecified site of right female breast
CPT/HCPCS: 70491; Q9967

== ENCOUNTER → 2021-09-06 | Outpatient (CLI) | payer OTHER ==
[~2021-09-06] MED LIST changes: -ISOVUE-370 76% 100ML VIAL As Ordered ONE; +K-TA10TA2 PO; +VENL37.598 PO
[2021-09-06 11:13] LABS: BASO # 0.1 10^3/uL (0.0-0.2); EOS # 0.2 10^3/uL (0.0-0.5); EOS % 3.8 % (0.0-3.0); HEMATOCRIT 42.3 % (36.0-47.0); LYMPH # 1.4 10^3/uL (1.5-5.0); LYMPH % 23.9 % (24.0-44.0); MEAN CORPUSCULAR HEMOGLOBIN 29.3 pg (27.0-33.0); MEAN CORPUSCULAR HGB CONC 33.1 g/dl (32.0-36.5); MEAN CORPUSCULAR VOLUME 88.5 fl (80.0-96.0); MONO # 0.6 10^3/uL (0.0-0.8); MONO % 9.7 % (2.0-8.0); NEUTROPHILS # 3.7 10^3/uL (1.5-8.5); NEUTROPHILS % 61.3 % (36.0-66.0); PLATELET COUNT, AUTOMATED 270 10^3/uL (150-450); RED BLOOD COUNT 4.78 10^6/uL (4.00-5.40)
[2021-09-06 11:45] LABS: ALBUMIN 4.3 GM/DL (3.2-5.2); ALT/SGPT 80 U/L (12-78); BILIRUBIN,TOTAL 0.5 MG/DL (0.2-1.0); BLOOD UREA NITROGEN 15 MG/DL (7-18); CALCIUM LEVEL 10.1 MG/DL (8.8-10.2); CARBON DIOXIDE LEVEL 32 MEQ/L (21-32); CHLORIDE LEVEL 102 MEQ/L (98-107); CREATININE FOR GFR 0.88 MG/DL (0.55-1.30); GLOMERULAR FILTRATION RATE > 60.0 (>45); GLUCOSE, FASTING 145 MG/DL (70-100); POTASSIUM SERUM 3.5 MEQ/L (3.5-5.1); SODIUM LEVEL 140 MEQ/L (136-145); TOTAL PROTEIN 7.6 GM/DL (6.4-8.2)
[2021-09-06 12:47] LABS: CA15-3 ANTIGEN 12.9 U/ML (<32.4)
== END ==
LOC: M LAB 09:58
PROVIDERS: ATTEND Specialist
DX: C50.919 Malignant neoplasm of unspecified site of unspecified female breast (principal)

== ENCOUNTER → 2021-09-07 | Outpatient (CLI) | payer OTHER ==
[~2021-09-07] MED LIST changes: +CYMB1CAP5 PO
[2021-09-07 15:38] LABS: BLOOD UREA NITROGEN 12 MG/DL (7-18); CALCIUM LEVEL 9.2 MG/DL (8.8-10.2); CARBON DIOXIDE LEVEL 33 MEQ/L (21-32); CHLORIDE LEVEL 100 MEQ/L (98-107); CREATININE FOR GFR 0.99 MG/DL (0.55-1.30); GLOMERULAR FILTRATION RATE > 60.0 (>45); GLUCOSE, FASTING 135 MG/DL (70-100); HEMOGLOBIN A1c 7.2 %; POTASSIUM SERUM 3.8 MEQ/L (3.5-5.1); SODIUM LEVEL 140 MEQ/L (136-145)
[2021-09-07 15:49] LABS: MALB URINE SIEMENS 46.8 MG/L; MAU/CREAT RATIO 16.2 MCG/MG (0.0-30.0)
== END ==
LOC: M PLALAB 12:51
PROVIDERS: ATTEND Nurse Practitioner Family
DX: E11.9 Type 2 diabetes mellitus without complications (principal); I10 Essential (primary) hypertension

== ENCOUNTER → 2021-09-23 | Outpatient (REF) | payer OTHER | LOC: M SFHCWAGY 13:19 | PROVIDERS: ATTEND Nurse Practitioner Women's Health | DX: Z12.4 Encounter for screening for malignant neoplasm of cervix (principal) ==

== ENCOUNTER → 2021-10-21 | Outpatient (CLI) | payer OTHER ==
--- NOTE | 2021-10-21 14:33 | RADONC ---
Radiation Oncology Hx/FUP Radiation Oncology Hx/FUP Date of Service: Oct 21, 2021 Pt Identifier Dary Cruz is a 60 year old female seen for a followup visit today at the department of radiation oncology for a history of right breast cancer pT2N1(mi)M0 ER/ME+ HER2- ILC Grade 2. She is s/p lumpectomy and SLNB on 01/05/[address] Strange. She received adjuvant WBI 40 Gy in 15 fractions + 10 Gy in 5 fraction tumor bed boost completed 02/11/21-03/10/21. Diagnosis/Treatment History Oncologic History 11/11/20 Mammogram showing 2.5 cm abnormality in the lower outer right breast. 11/26/19 Biopsy showing ILC ER/ME+ HER2- 12/25/20 MRI without regional disease 01/05/21 Lumpectomy with SLNB (Alie) pT2N1(mi) 1/2 nodes+ ILC margins negative 02/11/21-03/10/21 Adjuvant WBI 40 Gy in 15 fractions + 10 Gy in 5 fraction tumor bed boost March 2021-Anastrozole Survivorship: Test Due Next Last result Notes TSH, T4* 6m post-tx, then q1y N/A Carotid US* q10 y post-tx N/A Smoking cessation Assess annually if applicable N/A Screening CT chest q1y if eligible per USPSTF N/A Mammograms Min q1y, if breast conservation October 2021 CBC,CMP, Lipids q1y Per Dr. Junior DEXA q2y if on AI Per Dr. Junior Interval History Dary has no breast health concerns today. She reports that she is seeing Dr. Gomez regarding mastopexy in the coming months. She does report that her daughter has been diagnosed with de leia stage IV breast cancer. This has been a significant stressor. She feels depressed, was tried on effexor, which interfered with her sleep cycle. She has been started on an SSRI, which is better tolerated. She does still suffer from low mood, fatigue, and poor appetite. She is tolerating anastrozole however, her baseline hot flashes are no worse than prior to the AI. She has no joint pains. Current Therapy Anastrozole Stage Right lower outer breast cancer pT2N1(mi)M0 ER/ME+ HER2- Grade 2 ILC stage IB Social History: Never smoker Never drinker Allergies / Meds Allergies: Coded Allergies: lisinopril (Verified Allergy, Unknown, 12/31/20) valsartan (Verified Allergy, Unknown, 12/31/20) Home Meds Active Scripts Anastrozole (Anastrozole) 1 Mg Tablet, 1 TAB PO DAILY for breast cancer MDD 1 mg, #30 TAB 5 Refills Prov:JUAREZ JUNIOR MD 09/08/21 Duloxetine Hcl (Cymbalta) 30 Mg Capsule., 1 CAP PO DAILY for 30 Days, #30 CAP 6 Refills Prov:JUAREZ JUNIOR MD 09/08/21 Potassium Chloride (K-Tab ER) 10 Meq Tablet.er, 10 MEQ PO DAILY for 30 Days, #30 TAB 6 Refills Prov:JUAREZ JUNIOR MD 06/08/21 Reported Medications Vit A/Vit C/Vit E/Zinc/Copper (Preservision Areds Tablet) 1 Each Tablet, 1 TAB PO BID for 30 Days, #60 TAB 04/14/21 Aspirin (Aspirin EC) 81 Mg Tablet., 81 MG PO DAILY 12/31/20 Atorvastatin Calcium (Atorvastatin Calcium) 10 Mg Tablet, 10 MG PO DAILY, TAB 12/31/20 Metformin HCl (Metformin HCl) 500 Mg Tablet, 1000 MG PO DAILY, TAB 12/31/20 Hydrochlorothiazide (Hydrochlorothiazide) 25 Mg Tablet, 1 TAB PO DAILY 12/31/20 Omeprazole (Omeprazole) 20 Mg Capsule., 1 CAP PO DAILY 12/31/20 Discontinued Reported Medications [prevagen] No Conflict Check, 1 PO DAILY 05/18/21 [place]-3/Dha/Epa/Fish Oil ([place]-3 Fish Oil 1,000 mg Sfgl) 1,000 Mg Capsule, 2 CAP PO DAILY, CAP 12/31/20 Ergocalciferol (Vitamin D2) (Vitamin D2) 50,000 Units Cap, 1 CAP PO QWEEK 12/31/20 Discontinued Scripts Venlafaxine HCl (Venlafaxine HCl ER) 37.5 Mg Cap.er.24h, 37.5 MG PO DAILY for 30 Days, #30 CAP 6 Refills Prov:JUAREZ JUNIOR MD 06/08/21 Amoxicillin/Potassium Clav (Augmentin 875-125 Tablet) 1 Each Tablet, 1 TAB PO BID for infection for 10 Days, #20 TAB 1 Refill Prov:PROSPER ANSARI MD 05/18/21 Potassium Chloride (Potassium Chloride) 20 Meq Tablet.er, 1 TAB PO DAILY for 14 Days, #14 TAB 0 Refills Prov:JUAREZ JUNIOR MD 04/14/21 Review of Systems Review of Systems General: Denies: Normal Appetite Constitutional: Reports: Fatigue; Denies: Weight Loss HEENT: Denies: Head Aches Breast: Reports: Breast Pain or Tenderness (Mild tenderness right lateral breast); Denies: New Breast Lumps / Masses, Nipple Retraction, Nipple Discharge, Breast Skin Changes Cardiovascular: Denies: Chest Pain, Edema Neurological: Denies: Weakness, Numbness Psych: Reports: Depression Physical Examination Vital Signs Ht 64" Wt 163 lbs BMI 28 T 97.2 P 78 RR 18 BP 128/84 O2 99% Pain 0 Fatigue 5 General Exam: Alert, Cooperative, No Acute Distress Eye Exam: PERRLA, EOMI ENT EXAM: Atraumatic Neck Exam: Supple; Negative: Lymphadenopathy Chest Exam: Clear to auscultation Heart Exam: Rate Normal Breast Exam: Negative: Symmetric Bilaterally (L>R, minimal palpable fibrosis right lateral breast, no palpable masses or lesions in the BL breast or axillae), Nipple Retraction, Nipple Discharge, Skin Changes Abdomen Exam: Soft Extremity Exam: Negative: Edema Skin Exam: Nl turgor and temperature Neuro Exam: Normal Gait, Normal Speech, Cranial Nerves 3-12 NL Psych Exam: Mental status NL Diagnostic and Laboratory Diagnostic Review Radiologic images, relevant labs and pathology reports were personally reviewed and discussed with Ms. Cruz. Assessment and Plan Impression Assessment Ms. Cruz is a 60 year old female with a history of right breast cancer pT2N1(mi)M0 ER/ME+ HER2- ILC Grade 2. She is s/p lumpectomy and SLNB on 01/05/[address] Strange. She received adjuvant WBI 40 Gy in 15 fractions + 10 Gy in 5 fraction tumor bed boost completed 02/11/21-03/10/21. She is dealing with significant psychosocial stress and depression, she and I spent much time discussing in general terms, the management of stage IV breast cancer which her daughter has been diagnosed with. I offered emotional support, and presented a hopeful message, which she was appreciative of. With respect to her exam today she has YOEL, and she has pending reconstruction. Her tissue bed on the right and skin are both quite healthy appearing, therefore I think a good cosmetic outcome is likely. She has close mammographic follow up. Given her present psychosocial challenges, and pending surgery, I offered to see her again in 6 months time, she agreed. Performance Status ECOG 0 Plan Follow up in 6 months Ms. Cruz was encouraged to call with questions or concerns in the interim period. Billing Statement Total time of [36] minutes was spent preparing for the visit [2], obtaining HPI [10], examining the patient [3], reviewing diagnostic tests [3], discussing management options [10], coordinating care [1], and writing this note [7]. RORY HAYS MD Oct 21, 2021 14:33
== END ==
LOC: M ONCR 12:44
PROVIDERS: ATTEND General Practice
DX: C50.511 Malignant neoplasm of lower-outer quadrant of right female breast (principal); Z92.3 Personal history of irradiation; Z88.1 Allergy status to other antibiotic agents; Z79.899 Other long term (current) drug therapy

== ENCOUNTER → 2021-11-16 | Outpatient (CLI) | payer OTHER ==
[~2021-11-16] MED LIST changes: +LORA1TAB4 PO; +OMEP-173 PO; -OMEP-218 PO
== END ==
LOC: M WHC 10:51
PROVIDERS: ATTEND Surgery
DX: C50.911 Malignant neoplasm of unspecified site of right female breast (principal); Q83.8 Other congenital malformations of breast; Z92.3 Personal history of irradiation
CPT/HCPCS: 77066; G0279

== ENCOUNTER → 2022-01-04 | Outpatient (CLI) | payer OTHER ==
[~2022-01-04] MED LIST changes: -LORA1TAB4 PO
[2022-01-04 17:53] LABS: BASO # 0.1 10^3/uL (0.0-0.2); BASO % 0.8 % (0.0-1.0); EOS # 0.3 10^3/uL (0.0-0.5); EOS % 4.4 % (0.0-3.0); HEMATOCRIT 42.6 % (36.0-47.0); HEMOGLOBIN 13.6 g/dl (12.0-15.5); LYMPH # 1.9 10^3/uL (1.5-5.0); LYMPH % 29.5 % (24.0-44.0); MEAN CORPUSCULAR HEMOGLOBIN 29.1 pg (27.0-33.0); MEAN CORPUSCULAR HGB CONC 31.9 g/dl (32.0-36.5); MEAN CORPUSCULAR VOLUME 91.2 fl (80.0-96.0); MONO # 0.7 10^3/uL (0.0-0.8); MONO % 10.3 % (2.0-8.0); NEUTROPHILS # 3.5 10^3/uL (1.5-8.5); NEUTROPHILS % 54.7 % (36.0-66.0); PLATELET COUNT, AUTOMATED 249 10^3/uL (150-450); RED BLOOD COUNT 4.67 10^6/uL (4.00-5.40); WHITE BLOOD COUNT 6.4 10^3/uL (4.0-10.0)
[2022-01-04 18:07] LABS: ALBUMIN 4.3 GM/DL (3.2-5.2); ALT/SGPT 67 U/L (12-78); BILIRUBIN,TOTAL 0.3 MG/DL (0.2-1.0); BLOOD UREA NITROGEN 13 MG/DL (7-18); CALCIUM LEVEL 9.5 MG/DL (8.8-10.2); CARBON DIOXIDE LEVEL 32 MEQ/L (21-32); CHLORIDE LEVEL 106 MEQ/L (98-107); CREATININE FOR GFR 0.85 MG/DL (0.55-1.30); GLOMERULAR FILTRATION RATE > 60.0 (>45); GLUCOSE, FASTING 100 MG/DL (70-100); POTASSIUM SERUM 4.8 MEQ/L (3.5-5.1); SODIUM LEVEL 142 MEQ/L (136-145); TOTAL PROTEIN 7.5 GM/DL (6.4-8.2)
== END ==
LOC: M PLALAB 16:01
PROVIDERS: ATTEND Specialist
DX: C50.919 Malignant neoplasm of unspecified site of unspecified female breast (principal)

== ENCOUNTER 2022-01-12 12:38 | Emergency (ER) | payer OTHER ==
[~2022-01-12] VITALS: Ht 162.6 cm; Wt 71.3 kg
[~2022-01-12 12:38] MED LIST changes: +LORA1TAB4 PO
[2022-01-12 14:54] LABS: APPEARANCE, URINE CLEAR (CLEAR); BACTERIA, URINE AUTO NEGATIVE (NEGATIVE); BILIRUBIN, URINE AUTO NEGATIVE (NEGATIVE); BLOOD, URINE BLOOD NEGATIVE (NEGATIVE); COLOR, URINE STRAW (YELLOW); GLUCOSE, URINE (UA) AUTO NEGATIVE (NEGATIVE); KETONE, URINE AUTO NEGATIVE (NEGATIVE); LEUKOCYTE ESTERASE, URINE AUTO NEGATIVE (NEGATIVE); NITRITE, URINE AUTO NEGATIVE (NEGATIVE); PROTEIN, URINE AUTO NEGATIVE (NEGATIVE); RBC, URINE AUTO 0 /HPF (0-3); SPECIFIC GRAVITY URINE AUTO 1.008 (1.002-1.035); SQUAMOUS EPITHELIAL CELL UR AU 0 /HPF (0-6); WBC, URINE AUTO 1 /HPF (0-3)
[2022-01-12 15:08] VITALS: BP 131/84
== END 2022-01-12 15:11 | disposition home or self-care (01) ==
LOC: M ED 12:38
DX: S70.02XA Contusion of left hip, initial encounter (principal); S39.012A Strain of muscle, fascia and tendon of lower back, initial encounter; R07.89 Other chest pain; W00.9XXA Unspecified fall due to ice and snow, initial encounter; Y92.099 Unspecified place in other non-institutional residence as the place of occurrence of the external cause; Y93.9 Activity, unspecified; Y99.9 Unspecified external cause status; E11.9 Type 2 diabetes mellitus without complications; I10 Essential (primary) hypertension; M51.27 Other intervertebral disc displacement, lumbosacral region; M51.36 Other intervertebral disc degeneration, lumbar region; M46.97 Unspecified inflammatory spondylopathy, lumbosacral region; Z79.82 Long term (current) use of aspirin; Z79.899 Other long term (current) drug therapy; Z88.8 Allergy status to other drugs, medicaments and biological substances

== ENCOUNTER → 2022-03-18 | Outpatient (CLI) | payer OTHER ==
[~2022-03-18] MED LIST changes: -D31000TA2 PO; +VITA100093 PO
[2022-03-18 13:34] LABS: CHOLESTEROL RISK RATIO 3.524 (<5)
[2022-03-18 13:35] LABS: MALB URINE SIEMENS 15.8 MG/L; MAU/CREAT RATIO 9.5 MCG/MG (0.0-30.0)
[2022-03-18 14:09] LABS: HEMOGLOBIN A1c 6.5 %
== END ==
LOC: M PLALAB 09:52
PROVIDERS: ATTEND Physician Assistant
DX: E78.2 Mixed hyperlipidemia (principal); E11.9 Type 2 diabetes mellitus without complications

== ENCOUNTER → 2022-05-11 | Outpatient (CLI) | payer OTHER ==
[~2022-05-11] MED LIST changes: +ALOG12.5 PO
== END ==
LOC: M ONCR 08:05
PROVIDERS: ATTEND General Practice
DX: C50.511 Malignant neoplasm of lower-outer quadrant of right female breast (principal); F32.A Depression, unspecified; G47.00 Insomnia, unspecified; Z79.82 Long term (current) use of aspirin; Z79.899 Other long term (current) drug therapy; Z80.3 Family history of malignant neoplasm of breast; Z88.8 Allergy status to other drugs, medicaments and biological substances; Z92.3 Personal history of irradiation

== ENCOUNTER → 2022-06-19 | Outpatient (CLI) | payer OTHER ==
[~2022-06-19] MED LIST changes: +OYST1TAB PO; +PRESCAP PO
== END ==
LOC: M LABSMTC 10:28
PROVIDERS: ATTEND Anesthesiology
DX: Z01.812 Encounter for preprocedural laboratory examination (principal); Z20.822 Contact with and (suspected) exposure to COVID-19

== ENCOUNTER 2022-06-24 10:33 | Day surgery (SDC) | payer OTHER ==
[~2022-06-24] VITALS: Ht 162.6 cm; Wt 66.2 kg
[~2022-06-24 10:33] MED LIST changes: +NS 1,000 ML IV ONE
[2022-06-24] MEDS ORDERED: LIDOCAINE 2% 100MG/5ML SDV (FOR ANES.) As Ordered ONE (12:18)
[2022-06-24] MEDS ORDERED: propofoL 200 MG/20 ML VIAL As Ordered ONE (12:18)
[2022-06-24 13:35] VITALS: BP 118/76
== END 2022-06-24 13:47 | disposition home or self-care (01) ==
LOC: M OPP 10:33
PROVIDERS: ATTEND Internal Medicine Gastroenterology
DX: Z12.11 Encounter for screening for malignant neoplasm of colon (principal); Z80.0 Family history of malignant neoplasm of digestive organs; K57.30 Diverticulosis of large intestine without perforation or abscess without bleeding; K64.8 Other hemorrhoids; I10 Essential (primary) hypertension; E78.5 Hyperlipidemia, unspecified; E11.9 Type 2 diabetes mellitus without complications; F32.A Depression, unspecified; K21.9 Gastro-esophageal reflux disease without esophagitis; Z85.3 Personal history of malignant neoplasm of breast; Z92.3 Personal history of irradiation; Z88.8 Allergy status to other drugs, medicaments and biological substances; Z79.82 Long term (current) use of aspirin; Z79.899 Other long term (current) drug therapy; Z83.3 Family history of diabetes mellitus; Z80.41 Family history of malignant neoplasm of ovary; Z80.3 Family history of malignant neoplasm of breast; Z80.51 Family history of malignant neoplasm of kidney

== ENCOUNTER → 2022-09-20 | Outpatient (REF) | payer OTHER ==
[~2022-09-20] MED LIST changes: -NS 1,000 ML IV ONE
== END ==
LOC: M SFHCPLAZ 14:20
PROVIDERS: ATTEND Physician Assistant
DX: E11.9 Type 2 diabetes mellitus without complications (principal); E78.2 Mixed hyperlipidemia

== ENCOUNTER → 2022-09-21 | Outpatient (CLI) | payer OTHER ==
[2022-09-21 10:45] LABS: CHOLESTEROL RISK RATIO 2.942 (<5)
[2022-09-21 11:57] LABS: HEMOGLOBIN A1c 6.2 %
== END ==
LOC: M LAB 09:33
PROVIDERS: ATTEND Physician Assistant
DX: E11.9 Type 2 diabetes mellitus without complications (principal); E78.2 Mixed hyperlipidemia

== ENCOUNTER → 2022-11-17 | Outpatient (CLI) | payer OTHER | LOC: M WHC 10:22 | PROVIDERS: ATTEND Nurse Practitioner Women's Health | DX: Z12.31 Encounter for screening mammogram for malignant neoplasm of breast (principal) ==

== ENCOUNTER → 2023-02-16 | Outpatient (REF) | payer OTHER | LOC: M PLALAB 15:53 | PROVIDERS: ATTEND Nurse Practitioner Family | DX: Z12.4 Encounter for screening for malignant neoplasm of cervix (principal) ==

== ENCOUNTER → 2023-05-11 | Outpatient (CLI) | payer OTHER ==
[~2023-05-11] MED LIST changes: -K-TA10TA2 PO; +LORA1TAB23 PO; -LORA1TAB4 PO; +POTA-165 PO; +POTA-298 PO; -POTA1TAB14 PO
== END ==
LOC: M ONCR 08:22
PROVIDERS: ATTEND General Practice
DX: Z08 Encounter for follow-up examination after completed treatment for malignant neoplasm (principal); Z85.3 Personal history of malignant neoplasm of breast; F32.A Depression, unspecified; G47.00 Insomnia, unspecified; Z71.2 Person consulting for explanation of examination or test findings; Z79.811 Long term (current) use of aromatase inhibitors; Z79.82 Long term (current) use of aspirin; Z79.899 Other long term (current) drug therapy; Z88.8 Allergy status to other drugs, medicaments and biological substances; Z92.3 Personal history of irradiation; Z98.890 Other specified postprocedural states

== ENCOUNTER → 2023-08-04 | Outpatient (CLI) | payer OTHER ==
[2023-08-04 15:01] LABS: BASO # 0.1 10^3/uL (0.0-0.2); BASO % 0.7 % (0.0-1.0); EOS # 0.3 10^3/uL (0.0-0.5); HEMATOCRIT 38.1 % (36.0-47.0); HEMOGLOBIN 12.4 g/dl (12.0-15.5); LYMPH # 1.1 10^3/uL (1.5-5.0); LYMPH % 16.6 % (24.0-44.0); MEAN CORPUSCULAR HEMOGLOBIN 29.5 pg (27.0-33.0); MEAN CORPUSCULAR HGB CONC 32.5 g/dl (32.0-36.5); MEAN CORPUSCULAR VOLUME 90.5 fl (80.0-96.0); MONO # 0.8 10^3/uL (0.0-0.8); MONO % 12.3 % (2.0-8.0); NEUTROPHILS # 4.4 10^3/uL (1.5-8.5); NEUTROPHILS % 64.7 % (36.0-66.0); PLATELET COUNT, AUTOMATED 232 10^3/uL (150-450); RED BLOOD COUNT 4.21 10^6/uL (4.00-5.40); WHITE BLOOD COUNT 6.8 10^3/uL (4.0-10.0)
[2023-08-04 15:26] LABS: HEMOGLOBIN A1c 6.8 % (4.0-6.0)
[2023-08-04 15:31] LABS: TOTAL 25(OH) VITAMIN D 25.8 NG/ML (20.0-100.0)
[2023-08-04 15:32] LABS: ALBUMIN 4.1 G/DL (3.2-5.2); ALKALINE PHOSPHATASE 119 U/L (46-116); ALT/SGPT 33 U/L (7.0-40); AST/SGOT 16 U/L (<34); BILIRUBIN,TOTAL 0.4 MG/DL (0.3-1.2); BLOOD UREA NITROGEN 15 MG/DL (9-23); CALCIUM LEVEL 9.2 MG/DL (8.3-10.6); CARBON DIOXIDE LEVEL 31 MMOL/L (20-31); CHLORIDE LEVEL 105 MMOL/L (98-107); CHOLESTEROL LEVEL 143 MG/DL (<200); CHOLESTEROL RISK RATIO 2.49 (<5); GLOMERULAR FILTRATION RATE > 60.0 (>45); GLUCOSE, FASTING 130 MG/DL (74-106); HDL CHOLESTEROL 57.4 MG/DL (>40); NON-HDL-C 85.6 MG/DL; POTASSIUM SERUM 4.6 MMOL/L (3.5-5.1); SODIUM LEVEL 142 MMOL/L (136-145); TOTAL PROTEIN 7.2 G/DL (5.7-8.2); TRIGLYCERIDES LEVEL 108 MG/DL (<150)
== END ==
LOC: M PLALAB 11:58
PROVIDERS: ATTEND Physician Assistant
DX: E11.9 Type 2 diabetes mellitus without complications (principal); I10 Essential (primary) hypertension; E55.9 Vitamin D deficiency, unspecified; E78.2 Mixed hyperlipidemia

== ENCOUNTER → 2023-10-23 | Outpatient (CLI) | payer OTHER ==
[~2023-10-23] MED LIST changes: +SEMA0.257; +TIZA10TA
== END ==
LOC: M WHC 09:17
PROVIDERS: ATTEND Nurse Practitioner
DX: C50.919 Malignant neoplasm of unspecified site of unspecified female breast (principal); Z79.899 Other long term (current) drug therapy; M85.89 Other specified disorders of bone density and structure, multiple sites

== ENCOUNTER → 2023-11-27 | Outpatient (CLI) | payer OTHER | LOC: M WHC 13:12 | PROVIDERS: ATTEND Nurse Practitioner Women's Health | DX: Z85.3 Personal history of malignant neoplasm of breast (principal); R92.323 Mammographic fibroglandular density, bilateral breasts; Z98.890 Other specified postprocedural states; Z92.3 Personal history of irradiation ==

== ENCOUNTER → 2024-01-08 | Outpatient (REF) | payer OTHER ==
[~2024-01-08] MED LIST changes: -ASPI-161 PO; +ASPI-615 PO
== END ==
LOC: M SFHCDERM 17:41
PROVIDERS: ATTEND Physician Assistant
DX: L82.1 Other seborrheic keratosis (principal)

== ENCOUNTER → 2024-02-21 | Outpatient (REF) | payer OTHER | LOC: M SFHCWAGY 10:45 | PROVIDERS: ATTEND Nurse Practitioner Family | DX: Z12.4 Encounter for screening for malignant neoplasm of cervix (principal) ==

== ENCOUNTER → 2024-04-18 | Outpatient (REF) | payer OTHER | LOC: M SFHCPLAZ 10:09 | PROVIDERS: ATTEND Physician Assistant | DX: R52 Pain, unspecified (principal) ==

== ENCOUNTER → 2024-05-10 | Outpatient (CLI) | payer OTHER | LOC: M ONCR 08:17 | PROVIDERS: ATTEND General Practice | DX: C50.511 Malignant neoplasm of lower-outer quadrant of right female breast (principal); Z92.3 Personal history of irradiation; Z79.811 Long term (current) use of aromatase inhibitors; Z71.2 Person consulting for explanation of examination or test findings; Z98.890 Other specified postprocedural states; Z88.8 Allergy status to other drugs, medicaments and biological substances; Z79.84 Long term (current) use of oral hypoglycemic drugs; Z79.82 Long term (current) use of aspirin; Z79.899 Other long term (current) drug therapy ==

== ENCOUNTER → 2024-12-02 | Outpatient (CLI) | payer MEDICARE, OTHER | LOC: M WHC 13:42 | PROVIDERS: ATTEND Nurse Practitioner Women's Health | DX: Z85.3 Personal history of malignant neoplasm of breast (principal); R92.333 Mammographic heterogeneous density, bilateral breasts; N60.11 Diffuse cystic mastopathy of right breast | CPT/HCPCS: 76642; 77066; G0279 ==

== ENCOUNTER → 2025-10-10 | Outpatient (CLI) | payer MEDICARE ==
[~2025-10-10] MED LIST changes: +TRAZ-257
[2025-10-10 15:09] LABS: ESTIMATED AVERAGE GLUCOSE 163.0 MG/DL (60-110)
[2025-10-10 15:17] LABS: CREATININE, URINE 176.0 MG/DL
[2025-10-10 15:18] LABS: MALB URINE SIEMENS 4.0 MG/L; MAU/CREAT RATIO 2.2 MCG/MG (0.0-30.0)
[2025-10-10 15:19] LABS: ALT/SGPT 36.0 U/L (7.0-40); AST/SGOT 22.0 U/L (<34); CALCIUM LEVEL 9.3 MG/DL (8.3-10.6); CARBON DIOXIDE LEVEL 33.0 MMOL/L (20-31); CHLORIDE LEVEL 99.0 MMOL/L (98-107); CHOLESTEROL LEVEL 144.0 MG/DL (<200); CHOLESTEROL RISK RATIO 2.52 (<5); CREATININE FOR GFR 0.86 MG/DL (0.55-1.30); GLOMERULAR FILTRATION RATE 74.9 (>45); LDL CHOLESTEROL 65.6 MG/DL (<100); NON-HDL-C 87.0 MG/DL; POTASSIUM SERUM 3.4 MMOL/L (3.5-5.1); SODIUM LEVEL 142.0 MMOL/L (136-145); TRIGLYCERIDES LEVEL 107.0 MG/DL (<150)
== END ==
LOC: M LAB 13:43
PROVIDERS: ATTEND Nurse Practitioner Adult Health
DX: E11.9 Type 2 diabetes mellitus without complications (principal); E78.2 Mixed hyperlipidemia

== ENCOUNTER → 2025-10-13 | Outpatient (REF) | payer MEDICARE | LOC: M SFHCDERM 10:32 | PROVIDERS: ATTEND Physician Assistant | DX: L57.0 Actinic keratosis (principal); D48.9 Neoplasm of uncertain behavior, unspecified ==